=== PATIENT | female | born 1940 | race Caucasian/White ===

== ENCOUNTER → 2016-12-24 | Outpatient (CLI) | payer OTHER | LOC: BMCIMAGING 10:10 | PROVIDERS: ATTEND Internal Medicine Hematology & Oncology | DX: Z13.820 Encounter for screening for osteoporosis (principal); M81.0 Age-related osteoporosis without current pathological fracture; Z87.81 Personal history of (healed) traumatic fracture ==

== ENCOUNTER 2017-03-06 07:35 | Inpatient (IN) | payer OTHER ==
--- NOTE | 2017-03-06 07:56 | EDPHY ---
H & P Time Seen by Provider: 03/06/17 07:53 HPI/ROS: CHIEF COMPLAINT: Right hip pain HISTORY OF PRESENT ILLNESS: The patient is a 76 y/o female who complains of right hip pain secondary to a mechanical fall yesterday. Yesterday she tried to step off a sidewalk curb when she tripped and fell backwards onto her right buttock. She needed assistance to stand up by herself after the fall, but she was able to walk. Throughout the day the pain began to increase from an ache to a piercing pain and she eventually was unable to bear weight or walk. The pain is now severe and constant. She also notes the pain radiates to her right thigh with associated spasms. Denies other trauma, fever, chest pain, paresthesias or other pertinent symptoms. Last oral intake at 0630 (water only). REVIEW OF SYSTEMS: Aside from elements discussed in the HPI, a comprehensive 10-point review of systems was reviewed and is negative. Past Medical/Surgical History: PMH: Rheumatoid arthritis, osteoporosis, pulmonary hypertension PSH: Bilateral knee replacements Social History: at bedside, lives in [place], retired. Smoking Status: Never smoked Physical Exam: General Appearance: Alert, pleasant Head: Atraumatic Eyes: No conjunctival erythema, PERRLA, EOMI ENT, Mouth: no oral trauma, no bony tenderness Neck: Non-tender, full range of motion without pain Respiratory: No chest wall tenderness, lungs clear bilaterally Cardiovascular: Regular rate and rhythm Abdomen: Abdomen is soft and non tender Skin: No lacerations, no abrasions Back: No midline T/L/S tenderness Extremities: Right hip tenderness and pain with range of motion. Pelvis is stable; no tenderness over the pelvis or pubic symphysis, no extremity tenderness or deformity. Neurological: A&O, nonfocal exam Psychiatric: Mood and affect normal Constitutional: Initial Vital Signs Temperature (C) 36.7 C 03/06/17 07:38 Heart Rate 68 03/06/17 07:38 Respiratory Rate 18 03/06/17 07:38 Blood Pressure 163/91 H 03/06/17 07:38 O2 Sat (%) 97 03/06/17 07:38 O2 Delivery Mode Nasal Cannula O2 (L/minute) 2 Allergies/Adverse Reactions: shellfish derived Allergy (Intermediate, Verified 03/06/17 07:37) FACIAL SWELLING SEASONAL Allergy (Mild, Uncoded 12/07/13 14:19) RUNNY NOSE Home Medications: Medication Instructions Recorded Diltiazem Cd [Cardizem ER 120 MG 120 mg PO DAILY 03/23/12 (RX)] Lisinopril [Zestril 20 mg (RX)] 20 mg PO DAILY 03/23/12 Cholecalciferol Vit D3 [Vitamin D3 2,000 units PO DAILY 03/13/13 2000 units (OTC)] C/E/Zn/Cu/OM3/DHA/EPA/LUT/ZEAX 1 each PO BID 03/06/17 [Preservision Areds 2 Softgel] DULoxetine [Cymbalta 60 MG (*)] 60 mg PO DAILY 03/06/17 Furosemide [Lasix 20 MG (*)] 20 mg PO Q3D PRN 03/06/17 Ibuprofen [Motrin (*)] 400 mg PO Q4-6PRN PRN 03/06/17 Medical Decision Making - Diagnostics Imaging Results: Imaging Impressions Hip X-Ray 03/06/17 07:52 Impression: Nondisplaced intertrochanteric fracture of the right hip. See report of CT head performed on the same day for further details. Dr. Fierro discussed these findings by telephone with JEN ARTEAGA at 2016 9:03. Chest X-Ray 03/06/17 08:02 Impression: 1. Cardiomegaly. 2. Large hiatal hernia. 3. No definite pneumonia or pulmonary edema. 4. Consider chest two views when the patient's medical condition permits. Extremity CT 03/06/17 08:31 Impression: 1. Nondisplaced intertrochanteric fracture of the right femur. 2. Fusion of the right sacroiliac joint. 3. Moderate to severe femoroacetabular joint osteoarthrosis, left greater than right. 4. Right adnexal cyst measuring 4.1 cm. Recommend annual ultrasound follow-up. Dr. Fierro discussed these findings by telephone with JEN ARTEAGA at 2016 9:03. Imaging: Discussed imaging studies w/ director call Radiologist, I viewed and interpreted images myself ED Course/Re-evaluation: The patient is a 76 y/o female who presents with right hip tenderness secondary to a mechanical fall yesterday. On exam she has right hip pain with range of motion. 0835: Patient's right hip x-ray is negative for osseous injury. Right hip CT ordered for further imaging. 0903: Spoke with radiologist about the patient's right hip CT; he reports the patient has a right intertrochanteric hip fracture. 0905: Reassessed patient and discussed right hip x-ray findings and plan for admission. She reports she last ate last night and had a small glass of water this morning. She declines pain medication. There is no evidence of other injuries. 0908: Consulted with Dr. Jimenez [facility], spoke with Ruth ibarra orthopedic PA, about the patient's hip fracture. 0913: Consulted with hospitalist service, Dr. Tena accepts admission of this patient. Differential Diagnosis: Differential diagnosis includes though it is not limited to open fracture, intracranial hemorrhage, pneumothorax, hemothorax, intra-abdominal hemorrhage. - Data Points Laboratory Results: Laboratory Results 03/06/17 08:40 03/06/17 08:40 03/06/17 03/06/17 08:40 08:40 WBC 7.88 10^3/uL 10^3/uL (3.80-9.50) RBC 4.55 10^6/uL 10^6/uL (4.18-5.33) Hgb 13.5 g/dL g/dL (12.6-16.3) Hct 42.7 % % (38.0-47.0) MCV 93.8 fL fL (81.5-99.8) MCH 29.7 pg pg (27.9-34.1) MCHC 31.6 g/dL L g/dL (32.4-36.7) RDW 14.7 % % (11.5-15.2) Plt Count 145 10^3/uL L 10^3/uL (150-400) MPV 10.1 fL fL (8.7-11.7) Neut % (Auto) 71.3 % % (39.3-74.2) Lymph % (Auto) 13.8 % L % (15.0-45.0) Toombs % (Auto) 10.3 % % (4.5-13.0) Eos % (Auto) 3.6 % % (0.6-7.6) Baso % (Auto) 0.5 % % (0.3-1.7) Nucleat RBC Rel Count 0.0 % % (0.0-0.2) Absolute Neuts (auto) 5.62 10^3/uL 10^3/uL (1.70-6.50) Absolute Lymphs (auto) 1.09 10^3/uL 10^3/uL (1.00-3.00) Absolute Monos (auto) 0.81 10^3/uL H 10^3/uL (0.30-0.80) Absolute Eos (auto) 0.28 10^3/uL 10^3/uL (0.03-0.40) Absolute Basos (auto) 0.04 10^3/uL 10^3/uL (0.02-0.10) Absolute Nucleated RBC 0.00 10^3/uL 10^3/uL (0-0.01) Immature Gran % 0.5 % % (0.0-1.1) Immature Gran # 0.04 10^3/uL 10^3/uL (0.00-0.10) Sodium 141 mEq/L mEq/L (134-144) Potassium 4.6 mEq/L mEq/L (3.5-5.2) Chloride 104 mEq/L mEq/L (97-110) Carbon Dioxide 27 mEq/l mEq/l (22-31) Anion Gap 10 mEq/L mEq/L (8-16) BUN 25 mg/dL H mg/dL (7-23) Creatinine 0.6 mg/dL mg/dL (0.6-1.0) Estimated GFR > 60 Glucose 94 mg/dL mg/dL (70-100) Calcium 9.0 mg/dL mg/dL (8.5-10.4) Medications Given: Hydrocodone Bitart/Acetaminophen (Straughn 5/325) 1 - 2 tab PO Q4HRS PRN PRN Reason: Pain, Moderate Able to Take PO Stop: 03/16/17 10:19 Last Admin: 03/06/17 11:49 Dose: 1 tab Cyclobenzaprine HCl (Flexeril) 5 mg PO TID PRN PRN Reason: Spasms Stop: 09/02/17 13:14 Last Admin: 03/06/17 13:42 Dose: 5 mg Hydromorphone HCl (Dilaudid) 0.2 - 0.4 mg IVP Q4HRS PRN PRN Reason: Pain, Severe Unable to Take PO Stop: 03/16/17 10:19 Last Admin: 03/06/17 11:48 Dose: 0.2 mg Departure - Departure Disposition: [facility] Inpatient Acute Clinical Impression: Fracture of right hip Qualifiers: Encounter type: initial encounter Fracture type: closed Qualified Code(s): S72.001A - Fracture of unspecified part of neck of right femur, initial encounter for closed fracture Intertrochanteric fracture of right hip Qualifiers: Encounter type: initial encounter Fracture type: closed Fracture alignment: nondisplaced Qualified Code(s): S72.144A - Nondisplaced intertrochanteric fracture of right femur, initial encounter for closed fracture Condition: Fair Report Scribed for: Jen Arteaga Report Scribed by: Rubina Benavides Date of Report: 03/06/17 Time of Report: 07:55 Physician Review and Approval Statement: 03/06/17 07:55 Portions of this note were transcribed by a electromedical service engineer. I personally performed a history, physical exam, medical decision making, and confirmed accuracy of information the transcribed note.
[2017-03-06 08:46] LABS: % IMMATURE GRANULYOCYTES 0.5 % (0.0-1.1); ABSOLUTE IMMATURE GRANULOCYTES 0.04 10^3/uL (0.00-0.10); ADD DIFF? NO; ADD MORPH? NO; ADD SCAN? NO; ATYPICAL LYMPHOCYTE FLAG 0 (0-99); FRAGMENT RBC FLAG 0 (0-99); HEMATOCRIT 42.7 % (38.0-47.0); HEMOGLOBIN 13.5 g/dL (12.6-16.3); LEFT SHIFT FLG 0 (0-99); LIPEMIA HEMOLYSIS FLAG 80 (0-99); MEAN CELL HEMOGLOBIN 29.7 pg (27.9-34.1); MEAN CELL HEMOGLOBIN CONCENTR. 31.6 g/dL (32.4-36.7); MEAN CELL VOLUME 93.8 fL (81.5-99.8); MEAN PLATELET VOLUME 10.1 fL (8.7-11.7); PLATELET CLUMPS FLAG 0 (0-99); PLATELET COUNT 145 10^3/uL (150-400); RED BLOOD CELL COUNT 4.55 10^6/uL (4.18-5.33); RED CELL DISTRIBUTION WIDTH 14.7 % (11.5-15.2)
[2017-03-06 09:08] LABS: ANION GAP 10 mEq/L (8-16); CARBON DIOXIDE 27 mEq/l (22-31); CHLORIDE 104 mEq/L (97-110); CREATININE 0.6 mg/dL (0.6-1.0); GLOMERULAR FILTRATION RATE > 60; GLUCOSE 94 mg/dL (70-100); POTASSIUM 4.6 mEq/L (3.5-5.2); SODIUM 141 mEq/L (134-144)
--- NOTE | 2017-03-06 10:15 | ASMTCASEMG ---
Living Arrangements What is your living Answers: With Spouse arrangement? Who do you live with? Type Of Residence What kind of residence do Answers: House you live in? Stairs in Home Answers: Yes Notes: Please see note Environment Services Used Prior to Admission Home Services Used Prior Answers: Homemaking to Admission Other Services Used Prior to Admission Notes: Physical Therapy 2x per week for compressed T5 Home/Community Service Agency Name(s) Notes: Helen Goode [employer] [facility] [phone] Please see note Case Management Evaluation Functional: Able to Answers: Yes return Home with Prior Level of Function/Care Discharge Plan Comments Coordination Status Comments Notes: The pt is a 76 year old female who arrived by private vehicle to [facility] with her (Tavares). Pt reported that she fell on 03/05 while running errands. She was able to continue with her errands but began to experience a great deal of pain later in the day. Pt reported that she and her have been for 57 years and they live in a ranch style home in [place], about 5 minutes from the hospital. There are 13 stairs in the home to access the laundry room; pt indicated that she does not use them and her takes care of the laundry. Pt reported that they have a manager process every other week. Pt has 3 children who live in the area and they are aware that she is in [facility]. Her oldest daughter is confined to a wheelchair due to MS and the other two have cold/flu symptoms. Pt stated that she is very close to her children and indicated she would rather not be exposed to additional illness at this anaid. Pt reported that she attends outpatient physical therapy 2x per week with Helen Henesteban for a compressed T5. 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 Pt indicated pt may consider treatment in home. MILEY plans NAHOMI HERNANDEZ to follow. Date Signed: 03/06/2017 10:15 AM Electronically Signed By:Cyndy Wong LCSW
[2017-03-06] MEDS ORDERED: ONDANSETRON DISINTEGRATING 4 MG TAB PO PRN ×2 (10:20→19:33)
[2017-03-06] MEDS ORDERED: ONDANSETRON 4 MG/2 ML VIAL IVP PRN ×3 (10:20→19:33)
[2017-03-06] MEDS ORDERED: ACETAMINOPHEN 325 MG TAB PO PRN (10:20)
[2017-03-06] MEDS ORDERED: FUROSEMIDE 20 MG TAB PO PRN (10:23)
[2017-03-06] MEDS ORDERED: D5W 1/2 NS 1,000 ML IV SCH (10:30)
[2017-03-06] MEDS: HYDROmorphONE/DILAUDID 1 MG/ML INJ IVP PRN ×2 (11:48→15:43)
[2017-03-06] MEDS: HYDROCODONE/APAP 5/325 TAB PO PRN ×2 (11:49→15:43)
[2017-03-06] MEDS: CYCLOBENZAPRINE 10 MG TAB PO PRN (13:42)
--- NOTE | 2017-03-06 15:49 | CPEKG ---
Heart Rate: 67 RR Interval: 896 P-R Interval: 156 QRSD Interval: 138 QT Interval: 424 QTC Interval: 448 P Nilwood: 63 QRS Nilwood: -59 T Wave Nilwood: 51 EKG Severity - ABNORMAL ECG - EKG Impression: SINUS RHYTHM EKG Impression: RBBB AND LAFB EKG Impression: PROBABLE LEFT VENTRICULAR HYPERTROPHY EKG Impression: LATERAL INFARCT, OLD Electronically Signed By: Stella Kevin 07-Mar-2017 06:47:53
--- NOTE | 2017-03-06 17:23 | PDANEPAE ---
ANE History of Present Illness right hip fx p/f TFN ANE Past Medical History - Cardiovascular History Hx Hypertension: Yes Hx Arrhythmias: No Hx Chest Pain: No Hx Coronary Artery / Peripheral Vascular Disease: Yes Hx CHF / Valvular Disease: No Cardiovascular History Comment: MURMUR. LEAKY VALVES. STABLE CARDIOMEGALY - Pulmonary History Hx COPD: No Hx Asthma/Reactive Airway Disease: No Hx Recent Upper Respiratory Infection: No Hx Oxygen in Use at Home: Yes O2 in Use at Home (L/minute): 2 to 3 L Hx Sleep Apnea: No Sleep Apnea Screening Result - Last Documented: Positive Pulmonary History Comment: SOB W STAIRS. PULM HTN - Neurologic History Hx Cerebrovascular Accident: No Hx Seizures: No Hx Dementia: No - Endocrine History Hx Diabetes: No - Renal History Hx Renal Disorders: Yes Renal History Comment: INCONTINENCE - Liver History Hx Hepatic Disorders: No - Neurological & Psychiatric Hx Hx Neurological and Psychiatric Disorders: Yes Neurological / Psychiatric History Comment: ANXIETY, DEPRESSION - Cancer History Hx Cancer: No - Congenital Disorder History Hx Congenital Disorders: No - GI History Hx Gastrointestinal Disorders: Yes Gastrointestinal History Comment: LG HIATAL HERNIA. POLYPS. OCC DIARRHEA - Other Health History Other Health History: FRONT UPPER TEETH DAMAGED, BROKEN FROM FALL IN FEB. DENTAL IMPLANTS IN PLACE, WEARS RETAINER. OSTEOPENIA. ANEMIA, IRON DEF.- OCC INFUSIONS - Chronic Pain History Chronic Pain: Yes (L ARM) - Surgical History Prior Surgeries: EDUARD CATARACTS. MARCY. EDUARD TKA. KYPHOPLASTY. HEART CATH. TONSILS. NASAL POLYPS REM ANE Review of Systems Review of Systems: - Exercise capacity Exercise capacity: limited by disability ANE Patient History - Allergies Allergies/Adverse Reactions: shellfish derived Allergy (Intermediate, Verified 03/06/17 07:37) FACIAL SWELLING SEASONAL Allergy (Mild, Uncoded 12/07/13 14:19) RUNNY NOSE - Home Medications Home medications: home medication list seen and reviewed Home Medications: Diltiazem Cd [Cardizem ER 120 MG (RX)] 120 mg PO DAILY 03/23/12 [Last Taken ] Lisinopril [Zestril 20 mg (RX)] 20 mg PO DAILY 03/23/12 [Last Taken 03/06/17] Cholecalciferol Vit D3 [Vitamin D3 2000 units (OTC)] 2,000 units PO DAILY [Last Taken 03/05/17] C/E/Zn/Cu/OM3/DHA/EPA/LUT/ZEAX [Preservision Areds 2 Softgel] 1 each PO BID [Last Taken 03/05/17 21:00] DULoxetine [Cymbalta 60 MG (*)] 60 mg PO DAILY 03/06/17 [Last Taken 03/06/17] Furosemide [Lasix 20 MG (*)] 20 mg PO Q3D PRN 03/06/17 [Last Taken 2 Days Ago ~ 03/04/17] Ibuprofen [Motrin (*)] 400 mg PO Q4-6PRN PRN 03/06/17 [Last Taken 03/06/17] - NPO status NPO Since - Liquids (Date): 03/05/17 NPO Since - Liquids (Time): 16:30 NPO Since - Solids (Date): 03/05/17 NPO Since - Solids (Time): 16:30 - Anes Hx Anes Hx: no prior problems - Smoking Hx Smoking Status: Never smoked - Family Anes Hx Family Hx Anesthesia Complications: NONE ANE Labs/Vital Signs - Labs Result Diagrams: 03/06/17 08:40 03/06/17 08:40 - Vital Signs Blood Pressure: 128/73 Heart Rate: 64 Respiratory Rate: 16 O2 Sat (%): 94 Height: 157.48 cm Weight: 90.718 kg ANE Physical Exam - Airway Neck exam: FROM Mallampati Score: Class 2 Mouth exam: normal dental/mouth exam - Pulmonary Pulmonary: no respiratory distress - Cardiovascular Cardiovascular: regular rate and rhythym - ASA Status ASA Status: III ANE Anesthesia Plan Anesthesia Plan: general endotracheal anesthesia Urgent/Emergent Case: Roseanna bneson completed preop but documented later for safe timely pt care
[2017-03-06] MEDS ORDERED: ceFAZolin 2 GM/DEXTROSE 100 ML IV ONE (17:27)
[2017-03-06] MEDS ORDERED: PROPOFOL 200 MG/20 ML VIAL ONE (17:34)
[2017-03-06] MEDS ORDERED: fentaNYL 100 MCG/2 ML INJ ONE (17:34)
--- NOTE | 2017-03-06 17:36 | SOAPPROG ---
SOAP Progress Note Assessment/Plan: Assessment:Sonja is a pleasant 76 year old female who presents to the ER after falling last night. She was originally able to weight bear, however, had increasing pain. She presented to the ER unable to weight bear and was found to have a nondisplaced right intertrochanteric fracture. PE: Unable to bear weight Pain with ROM right hip NV intact RLE Plan: 1. Risks, benefits, and alternatives of operative vs non-operative management were discussed with patient. Patient wishes to proceed with surgical intervention 2. Informed consent was signed and patient will be taken to the OR at its earliest availability 03/06/17 17:33 Objective: Vital Signs Temp Pulse Resp BP Pulse Ox 36.8 C 64 16 128/73 H 94 03/06/17 15:17 03/06/17 17:22 03/06/17 17:22 03/06/17 17:22 03/06/17 17:22 ICD10 Worksheet Patient Problems: Problems Problem Status Onset Fracture of right hip Acute Intertrochanteric fracture of right hip Acute
[2017-03-06] MEDS ORDERED: SUGAMMADEX SODIUM 200 MG/2 ML VIAL IVP ONE (17:45)
[2017-03-06] MEDS ORDERED: ONDANSETRON 4 MG/2 ML VIAL ONE (17:45)
[2017-03-06] MEDS ORDERED: ROCURONIUM 100 MG/10 ML VIAL ONE (17:45)
[2017-03-06] MEDS ORDERED: DEXAMETHASONE 4 MG/ML VIAL ONE (17:45)
--- NOTE | 2017-03-06 17:46 | SOAPPROG ---
SOAP Progress Note Assessment/Plan: Assessment:Sonja is a pleasant 76 year old female now POD#0 from TFN right intertrochanteric femur fracture. PE: Dressing CDI NV intact RLE Plan: 1. Keep dressing clean and dry. Reinforce dressing if needed 2. Pt may weight bear as tolerated with an assistive device 3. PT/OT 4. Patient may be discharged once cleared from hospitalist care. Prescriptions for pain medication are in chart. Follow up with Dr. Salinas in two weeks for repeat evaluation, repeat radiographs, and staple removal. 03/06/17 17:33 03/06/17 17:43 Objective: Vital Signs Temp Pulse Resp BP Pulse Ox 36.8 C 64 16 128/73 H 94 03/06/17 15:17 03/06/17 17:22 03/06/17 17:22 03/06/17 17:22 03/06/17 17:22 ICD10 Worksheet Patient Problems: Problems Problem Status Onset Fracture of right hip Acute Intertrochanteric fracture of right hip Acute
[2017-03-06] MEDS ORDERED: LR 1,000 ML IV ONE (17:55)
[2017-03-06] MEDS ORDERED: HYDROmorphONE/DILAUDID 2 MG/ML INJ ONE (18:57)
[2017-03-06] MEDS ORDERED: HYDROmorphONE/DILAUDID 1 MG/ML INJ IVP PRN (19:09)
[2017-03-06] MEDS ORDERED: OXYCODONE/APAP 5/325 TAB PO PRN ×2 (19:09→19:33)
[2017-03-06] MEDS ORDERED: fentaNYL 100 MCG/2 ML INJ IVP PRN (19:09)
[2017-03-06] MEDS ORDERED: PROMETHAZINE HCL 25 MG/ML INJ IVP PRN (19:09)
[2017-03-06] MEDS ORDERED: LR 500 ML IV PRN (19:09)
[2017-03-06] MEDS ORDERED: NALOXONE HCL 0.4 MG/ML INJ IVP PRN (19:09)
[2017-03-06] MEDS ORDERED: ALBUTEROL 3 ML DEYVIAL IH PRN (19:09)
--- NOTE | 2017-03-06 19:33 | POSTOPPROG ---
Post Op Note Date of Operation: 03/06/17 Surgeon: Jignesh Salinas Architectural Technologist: Ruth Das PA-C Anesthesia: GET(General Endotracheal) Pre-op Diagnosis: right intertrochanteric femur fracture Post-op Diagnosis: right intertrochanteric femur fracture Procedure: right femur TFN Findings: right intertrochanteric femur fracture Inf/Abcess present in the surg proc area at time of surgery?: No Depth: Deep Incisional (Fascial) EBL: Minimal
--- NOTE | 2017-03-06 19:40 | POSTANESTH ---
Post Anesthetic Evaluation Cardiovascular Status: Normal, Stable Respiratory Status: Normal, Stable Level of Consciousness/Mental Status: Mildly Sleepy, Arousable Pain Control: Adequate, Prn Tx Ordered Nausea/Vomiting Control: Adequate, Prn Tx Ordered Complications Possibly Related to Anesthesia: None Noted
--- NOTE | 2017-03-06 23:12 | GCON ---
[f rep st] CONSULTATION Patient Name: DEVI BARAJAS N-Number: [id number] Date of : 1940 Patient Status: Inpatient Attending Doctor: Dr. Sera Tena Consulting Doctor: Jignesh Salinas MD Date of service: 03/06/17 CPT codes CPT code 38162 ER visit requiring admission or initial inpatient visit, level three Modifier 57 decision for surgery CHIEF COMPLAINT: Right hip pain HISTORY OF PRESENT ILLNESS: This is a very pleasant 76 year old female with a significant history for a fall onto her right hip on 03/05/17. Following the fall, she was unable to bear weight on her right lower extremity. As such, she was brought to the [facility] ED and was found to have an incomplete, non-displaced right intertrochanteric femur fracture. PROBLEM LIST: Right intertrochanteric femur fracture PAST MEDICAL HISTORY: Pulmonary hypertension, chronic O2 use, HTN, osteopenia SURGERIES: Bilateral TKA, Cholecystectomy, bilateral humeral IM rods, cardiac catheterization SOCIAL HISTORY: Non-contributory FAMILY HISTORY: Non-contributory CURRENT MEDICATIONS: Diltiazem, Lisinopril, Cholecalciferol, Duloxetine, Lasix, Ibuprofen, Preservision Areds 2 softgel ALLERGIES: NKDA REVIEW OF SYSTEMS Constitutional: No unexpected weight loss, weight gain, fevers, chills, or fatigue. Eyes: No blurred or double vision, no eye pain, redness or swelling. ENT: No headaches, difficulty swallowing, nose bleeds, tinnitus, or earaches. Cardiovascular: No chest pain, palpitations, fainting or murmurs. Respiratory: No shortness of breath, wheezing, cough, of difficulty breathing. GI: No reflux, no nausea or vomiting, no constipation, diarrhea, or bloody stools. Genitourinary: No urinary frequency or urgency, no pain with urination. Skin: No skin changes, rashes, itching, or redness. Neurologic: No unsteadiness of gait, no dizziness, tremors, or seizures. Psychiatric: No nervousness, anxiety, depression, or hallucinations. Hematologic: No increased bleeding or easy bruising. Endocrine: No excessive thirst or urination and no heat or cold intolerances. Allergic: No reactions to food or environment. Musculoskeletal: See history of present illness. PHYSICAL EXAM VITAL SIGNS: General: No apparent distress. Orientation: Alert and oriented times three Mood and affect: Calm, appropriate. Gait and station: Unable to assess Skin: Warm, dry. Lymph: Non tender neck, axillary and inguinal nodes. Chest: Equal expansion, no pain with deep breaths, speaks in coherent sentences. Cardiovascular: Regular pulse. Abdomen: Soft, non-tender, no masses, no palpable hernias. Bilateral hip examination Inspection/palpation: Right: TTP overlying right hip and groin. Pain with gentle ROM Left: Soft, non-tender. Range of motion Flexion: JOSÉ MIGUEL / 100 / 100 Extension: JOSÉ MIGUEL / 30 / 30 Abduction: JOSÉ MIGUEL / 40 / 40 Adduction: JOSÉ MIGUEL / 20 / 20 Internal rotation: JOSÉ MIGUEL / 40 / 40 External rotation: JOSÉ MIGUEL / 50 / 50 Strength (R / L / Normal) Muscle(s) Quadriceps (L3-L4): 3 / 5 / 5 Hamstrings (L4-L5): 3 / 5 / 5 Tibialis anterior (L4): 3 / 5 / 5 EHL (L5): 3 / 5 / 5 FHL (S1): / 5 / 5 Gastroc-soleus (S1): 3 / 5 / 5 Sensory (R / L / Normal) Dermatomes L1 (groin): + / + / + L2 (medial upper thigh): + / + / + L3 (anterior thigh): + / + / + L4 (medial ankle): + / + / + L5 (first dorsal web space): + / + / + S1 (lateral border of foot): + / + / + Peripheral nerves Superficial peroneal: + / + / + Deep peroneal: + / + / + Sural: + / + / + Tibial: + / + / + Saphenous: + / + / + Vascular exam (R / L / Normal) Dorsalis pedis pulse: 2+ / 2+ / 2+ Tibialis posterior pulse: 2+ / 2+ / 2+ Medical decision making Data Imaging study: right hip radiographs, two views Action: interpreted Interpretation / pertinent findings: possible nondisplaced intertrochanteric femur fracture Imaging study: right hip CT scan Action: interpreted Interpretation / pertinent findings: right intertrochanteric femur fracture, incomplete, non-displaced Diagnoses New diagnosis: right intertrochanteric femur fracture Work-up planned: yes: see assessment and plan Assessment and plan This is a pleasant 76 year old female with a right intertrochanteric femur fracture (incomplete and non-displaced) after injury on 03/05/17 -- currently unable to bear weight on her RLE with the use of an assistive device -As such I have discussed with the patient the risks, benefits, alternatives, and complications associated with both non-operative (specifically, observation ) and operative (specifically, right hip open reduction and internal fixation) forms of treatment -The patient fully understands the risks, benefits, alternatives, and complications of both forms of treatment and the patient wishes to proceed with operative intervention as outlined above -She has signed informed consent form for surgery and surgery will be performed as soon as the OR is available Time I have spent 80 minutes of [id number] time with the patient during this visit. Over fifty percent of this time was spent counseling the patient on the risks, benefits, alternatives, and complications of both non-operative and operative forms of treatment as outlined above. /[id number]/MODL MTDD
[2017-03-06] MEDS: PRESERVISION AREDS2 FORMULA EYE VIT 1 EACH PO SCH (23:38)
--- NOTE | 2017-03-06 23:52 | GHP ---
[f rep st] HISTORY AND PHYSICAL DATE OF ADMISSION: 03/06/2017 CHIEF COMPLAINT: Right hip pain. HISTORY OF PRESENT ILLNESS: This patient is a very pleasant 76-year-old female who fell yesterday while running errands. She landed on her right hip and buttock. She was able to walk immediately after injury and thought that she had just bruised herself. However, throughout the course of the night, the pain became much more intense, and she and her decided to come to the emergency department for evaluation this morning. Initial hip x-ray showed a nondisplaced intertrochanteric fracture of the right hip. She is admitted to the hospital for orthopedic stabilization. She denies any chest pain, shortness of breath, dizziness, lightheadedness prior to the fall. She states that it was just a misstep on a curb. She denies any previous history of stroke, heart attack, or diabetes. She does have pulmonary hypertension that has been well controlled with oxygen intermittently at night and with exercise. She denies any recent illness, fever, headache. She denies any nausea, vomiting , or diarrhea. Other than pain and spasm in her right hip and leg pain, she denies any other symptoms currently. PAST MEDICAL HISTORY: Pulmonary hypertension, chronic O2 use, history of bilateral knee replacements, history of cholecystectomy, history of bilateral broken arms with humeral intramedullary rods bilaterally, hypertension, osteopenia, history of cardiac catheterization in June 2012, showing secondary pulmonary hypertension with LV end-diastolic pressures elevated, but no significant coronary artery disease. SOCIAL HISTORY: She lives independently in [place] with her , Tavares. She has 3 grown adult children who live locally also. No tobacco use ever. Drinks 1-2 glasses of wine on the weekends only. ALLERGIES: No known drug allergies, but she is allergic to shellfish. REVIEW OF SYSTEMS: 10-point review of systems was done and was negative, except as above. OBJECTIVE: VITAL SIGNS: Blood pressure 120/73, heart rate is 67, respiratory rate is 16. She is 94% on 2.5 L nasal cannula. Temperature is 98.4. GENERAL: She is a very pleasant elderly female in no apparent distress. HEENT: Normocephalic, atraumatic. Extraocular movements are intact. Oropharynx is moist with no obvious lesions. NECK: Supple. No lymphadenopathy, JVD, or thyromegaly appreciated. CARDIOVASCULAR: Regular rate and rhythm without murmur. LUNGS: Decreased breath sounds throughout, but no rhonchi, wheezes, or crackles appreciated. ABDOMEN: Soft. Normoactive bowel sounds. No hepatosplenomegaly or masses appreciated. SKIN: No obvious rash or injury. NEUROLOGIC: Cranial nerves 2-12 are grossly intact. She moves all extremities , except less movement in the right lower extremity. Light touch is grossly intact throughout. PSYCHIATRIC: Speech is fluent. Mood and affect are pleasant and talkative. LABORATORY DATA: White blood cell count 7.88, hemoglobin and hematocrit 13.5 and 42.7, platelet count of 145, normal differential. Sodium is 141, potassium 4.6, chloride 104, CO2 27, BUN 25, creatinine 0.6, glucose 94, calcium 9.02. Extremity CT showed confirmed the nondisplaced intertrochanteric fracture of the right femur, previous fusion of the right sacroiliac joint, moderate to severe femoroacetabular joint osteoarthrosis with left greater than right, and a right adnexal cyst approximately 4.1 cm (recommendation was to follow with an ultrasound annually.) Chest x-ray showed cardiomegaly, large hiatal hernia. No pneumonia, pulmonary edema, or acute changes noted. All radiology studies were personally reviewed and agree with interpretations. ASSESSMENT/PLAN: 1. Right intertrochanteric nondisplaced fracture. Dr. Salinas has been consulted by the emergency department and is planning to take her to the operating room later today. Pain medications and anticoagulation will be reviewed after surgery. No specific pre-operative testing recommended. 2. Pulmonary hypertension. Electrocardiogram has been ordered but is pending at time of admission. Oxygen will be continued, and pulmonary status will need to be watched closely after anesthesia. 3. Hypertension. Continue with chronic home medications. 4. Osteoporosis. Continue with calcium/vitamin D. 5. Deep venous thrombosis prophylaxis. ALEXY hose and sequential compression devices currently but will discuss with Dr. Salinas pharmacological prophylaxis postsurgically. Full code requested by the patient. Primary care physician is Dr. Polk. Disposition. Anticipate greater than 2 midnights pending surgical repair and surgical recovery. /[id number]/MODL MTDD
[2017-03-07 05:14] LABS: % IMMATURE GRANULYOCYTES 0.3 % (0.0-1.1); ABSOLUTE IMMATURE GRANULOCYTES 0.03 10^3/uL (0.00-0.10); ADD DIFF? NO; ADD MORPH? NO; ADD SCAN? NO; ATYPICAL LYMPHOCYTE FLAG 0 (0-99); FRAGMENT RBC FLAG 0 (0-99); HEMATOCRIT 39.2 % (38.0-47.0); HEMOGLOBIN 12.1 g/dL (12.6-16.3); LEFT SHIFT FLG 0 (0-99); LIPEMIA HEMOLYSIS FLAG 80 (0-99); MEAN CELL HEMOGLOBIN 29.5 pg (27.9-34.1); MEAN CELL HEMOGLOBIN CONCENTR. 30.9 g/dL (32.4-36.7); MEAN CELL VOLUME 95.6 fL (81.5-99.8); MEAN PLATELET VOLUME 10.8 fL (8.7-11.7); PLATELET CLUMPS FLAG 0 (0-99); PLATELET COUNT 151 10^3/uL (150-400); RED CELL DISTRIBUTION WIDTH 14.7 % (11.5-15.2)
[2017-03-07 05:35] LABS: ANION GAP 6 mEq/L (8-16); CALCIUM 8.2 mg/dL (8.5-10.4); CARBON DIOXIDE 29 mEq/l (22-31); CHLORIDE 103 mEq/L (97-110); CREATININE 0.6 mg/dL (0.6-1.0); GLOMERULAR FILTRATION RATE > 60; GLUCOSE 135 mg/dL (70-100); SODIUM 138 mEq/L (134-144)
--- NOTE | 2017-03-07 05:54 | GOP ---
[f rep st] OPERATIVE REPORT PATIENT: DEVI BARAJAS DATE OF SERVICE: 03/06/17 PATIENT DATE OF : 1940 SURGEON: Jignesh Salinas M.D. DATA ABSTRACTOR: Ruth Das PA-C Mrs. Guallpa assistance was medically necessary for patient positioning and the retraction of vital structures. ANESTHESIA: General PRE-OPERATIVE DIAGNOSES: Right intertrochanteric femur fracture (ICD-10 code S72.143A Intertrochanteric femur fracture) POST-OPERATIVE DIAGNOSES: Right intertrochanteric femur fracture (ICD-10 code S72.143A Intertrochanteric femur fracture) OPERATIVE PROCEDURES: CPT code 33702 Treatment of an intertrochanteric femur fracture with an intramedullary implant EBL: 2cc COMPLICATIONS: None IMPLANTS: Synthes short trochanteric fixation nail with a 90 mm helical blade and a 38 mm distal interlocking bolt BRIEF CLINICAL NOTE: This is a very pleasant 76 year old female with a significant history for a right intertrochanteric femur fracture. As such, I have discussed the risks, benefits, alternatives, and complications associated with both non-operative (specifically, observation) and operative (specifically , right proximal femur reduction and internal fixation) forms of treatment. The patient fully understands the risks, benefits, alternatives, and complications associated with both forms of treatment and wishes to proceed with operative intervention as outlined above. The patient has signed the informed consent form for surgery. OPERATIVE NOTE: On the day of surgery, all of the patients questions were answered. The patient was then transferred from the pre-operative area into the operating room and a formal, Time-Out procedure was performed. The patient was identified by name, medical record number, social security number, and date of . In addition, the patients right lower extremity was identified as the correct portion of the patients body for surgery with the patients right hip being identified as the correct portion of that extremity for surgery. The anesthesia team administered pre-operative antibiotics for prophylaxis. The patient was then moved onto the fracture table and the right lower extremity was placed into traction. The extremity was then prepped and draped in the normal sterile fashion. A sterile marking pen was then utilized to crispin out the tip of the greater trochanter and 2-3 cm incision several centimeters proximal to the tip of the greater trochanter. A number 15 blade was then used to incise the skin and meticulous hemostasis was obtained in the subcutaneous plane. The abductor fascia was then split longitudinally to provide access to the tip of the greater trochanter. The starting guidewire was then advanced through the wound onto the tip of the greater trochanter. The guidewire was then advanced into the proximal femur. Appropriate guidewire positioning was then confirmed on both PA and lateral C-arm images. Next, the starting reamer was then advanced over the guidewire to create an entry point into the proximal femur. Following this, the guidewire and the starting reamer were then removed and a ball-tipped guidewire was advanced into the proximal femoral canal. The guidewires position was confirmed on both PA and lateral C-arm images. Next, the proximal femur was reamed over the guidewire starting with a 9 mm reamer and increasing in 0.5mm increments up to a 13.5 mm reamer. The last reamer provided for an excellent fit in the proximal femoral canal. As such, a 12 mm diameter short TFN was then opened and attached to the impaction device. The TFN was then advanced over the ball-tipped guidewire under fluoroscopic control. Next, the outrigger aiming arm was attached to the impaction device and a separate incision was made to allow for insertion of the helical blade. The aiming guide for the helical blade was then advanced through this separate incision and brought into direct contact with the lateral femoral cortex. The guidewire was then advanced through the aiming arm into the proximal femur extending into the lower portion of the femoral neck and head. Appropriate guidewire positioning was then confirmed on both PA and lateral C-arm fluoroscopy. Next, the large drill was utilized to open the lateral femoral cortex. The guidewire was then measured at a length of 90 mm and the stepped reamer was then set for this length. The guidewire was then over drilled with the stepped reamer. Following this, a 90 mm helical blade was then selected and opened and attached to the impaction device. The helical blade was then inserted over the guidewire. Its positioning was confirmed on both PA and lateral C-arm fluoroscopy. Next, the aiming guide for the helical blade was then utilized to compress across the site of the fracture and then the helical blade was locked into place through the proximal end of the nail. Following this, one distal interlocking bolt was inserted through a 5mm incision distally. Final PA and lateral C-arm fluoroscopic images were then obtained. All images demonstrated an anatomic reduction at the site of the fracture along with appropriate implant positioning and length in all views. These images were printed and saved. Next, all incisions were copiously irrigated with sterile normal saline. The fascia was re-approximated with 2-0 vicryl sutures, the subcutaneous plane was re-approximated with 3-0 vicryl sutures, and the skin was re-approximated with surgical angie. The skin was then cleaned with sterile normal saline and dried. Next, a mixture of 1% lidocaine and 0.5% Marcaine was then utilized to provide local anesthesia at the operative sites. Xeroform gauze dressings were then applied followed by a dry sterile dressing and an occlusive Ioban wrap. The patient was then reversed from anesthesia and transferred from the operating room table onto the post-operative gurney and transferred from the operating room to the PACU in stable condition. POST-OPERATIVE PLAN: The current dressings will be left in place for the next 2 days. The patient may WBAT on the right lower extremity. /[id number]/MODL MTDD
[2017-03-07] MEDS: HYDROCODONE/APAP 5/325 TAB PO PRN ×3 (07:16→20:30)
[2017-03-07] MEDS: DILTIAZEM CD 120 MG CAP PO SCH (08:53)
[2017-03-07] MEDS: CHOLECALCIFEROL VIT D3 1,000 UNITS TAB PO SCH (08:56)
[2017-03-07] MEDS: PRESERVISION AREDS2 FORMULA EYE VIT 1 EACH PO SCH ×2 (08:56→20:23)
[2017-03-07] MEDS: DULoxetine 60 MG CAP PO SCH (08:56)
[2017-03-07] MEDS ORDERED: oxyCODONE IR 5 MG TAB PO PRN (11:20)
[2017-03-07] MEDS: LISINOPRIL 20 MG TAB PO SCH (15:57)
--- NOTE | 2017-03-07 16:15 | ASMTCMCOM ---
CM Note CM Note Notes: Met with patient and family regarding discharge poc. PT/OT recommending SNF, patient and family in agreement. Patient requesting referrals be sent ot [facility] and [facility] in [place]. Spoke with Lara at [facility], she feels female bed may be available by Saturday. Referral also sent to [facility] as a back-up plan. Patient would like to discuss the facility options with this evening. CM will follow-up with facilities and patient on Saturday. Date Signed: 03/07/2017 04:15 PM Electronically Signed By:Fanta Arevalo RN
[2017-03-07] MEDS: ACETAMINOPHEN 325 MG TAB PO SCH ×2 (17:27→20:24)
--- NOTE | 2017-03-07 19:55 | HOSPPROG ---
Hospitalist Progress Note Assessment/Plan: #Right hip intertrochanteric femur fracture: s/p fixation nail #Acute hip pain: schedule APAP, PRN oxycodone #Chronic hypoxemic resp failure: stable #Pulmonary HTN: cont oxygen #HTN: cont home meds #Osteoporosis: Vit D/calcium #Acute blood loss anemia: 2/2 surgery #DVT ppx: SCDs #Diet: regular #Disp: cont inpatient care for IV pain control, PT/OT Subjective: pain with movement Objective: Vital Signs Temp Pulse Resp BP Pulse Ox 37.3 C 70 16 115/68 91 L 03/07/17 16:00 03/07/17 16:00 03/07/17 16:00 03/07/17 16:00 03/07/17 16:00 Laboratory Results 03/07/17 04:19 03/07/17 04:19 03/06/17 03/07/17 03/08/17 05:59 05:59 05:59 Intake Total 500 1001 Output Total 400 200 Balance 100 801 - Physical Exam Constitutional: no apparent distress Eyes: PERRL Ears, Nose, Mouth, Throat: moist mucous membranes Cardiovascular: regular rate and rhythym Respiratory: no respiratory distress, no rales or rhonchi Gastrointestinal: normoactive bowel sounds Skin: warm Musculoskeletal: other (right hip incision dressed, C/D/I) Neurologic: AAOx3, CN II-XII Intact ICD10 Worksheet Patient Problems: Problems Problem Status Onset Fracture of right hip Acute Intertrochanteric fracture of right hip Acute
[2017-03-07] MEDS ORDERED: diphenhydrAMINE 25 MG CAP PO PRN (20:11)
[2017-03-08 06:28] LABS: HEMATOCRIT 36.2 % (38.0-47.0); HEMOGLOBIN 11.3 g/dL (12.6-16.3); MEAN CELL HEMOGLOBIN 30.1 pg (27.9-34.1); MEAN CELL HEMOGLOBIN CONCENTR. 31.2 g/dL (32.4-36.7); MEAN CELL VOLUME 96.5 fL (81.5-99.8); RED BLOOD CELL COUNT 3.75 10^6/uL (4.18-5.33); RED CELL DISTRIBUTION WIDTH 14.8 % (11.5-15.2)
[2017-03-08] MEDS: CYCLOBENZAPRINE 10 MG TAB PO PRN (06:46)
[2017-03-08] MEDS: LISINOPRIL 20 MG TAB PO SCH ×2 (09:27→09:44)
[2017-03-08] MEDS: PRESERVISION AREDS2 FORMULA EYE VIT 1 EACH PO SCH ×2 (09:27→21:47)
[2017-03-08] MEDS: DILTIAZEM CD 120 MG CAP PO SCH (09:27)
[2017-03-08] MEDS: CHOLECALCIFEROL VIT D3 1,000 UNITS TAB PO SCH (09:30)
[2017-03-08] MEDS: DULoxetine 60 MG CAP PO SCH (09:30)
[2017-03-08] MEDS: ACETAMINOPHEN 325 MG TAB PO SCH ×3 (09:30→21:47)
--- NOTE | 2017-03-08 15:03 | SOAPPROG ---
SOAP Progress Note Assessment/Plan: Assessment:Sonja is a pleasant 76 year old female now POD#2 from TFN right intertrochanteric femur fracture. She reports she is doing well with pain in the right hip with weight bearing. PE: Dressing CDI. Dressing removed. No erythema, warmth, or drainage surrounding the incisions. There is a small skin tear proximal to the dressing. NV intact RLE No pain with gentle ROM of the bilateral hip joints No pain with calf compression. Compartments are soft. Plan: 1. Keep dressing clean and dry. Reinforce dressing if needed 2. Pt may weight bear as tolerated with an assistive device 3. PT/OT 4. Patient may be discharged once cleared from hospitalist care. Prescriptions for pain medication are in chart. Follow up with Dr. Salinas in two weeks from surgery date for repeat evaluation, repeat radiographs, and staple removal. 03/08/17 14:59 Objective: Vital Signs Temp Pulse Resp BP Pulse Ox 37.4 C 71 20 137/79 H 95 03/08/17 07:40 03/08/17 07:40 03/08/17 07:40 03/08/17 07:40 03/08/17 09:46 Laboratory Results 03/08/17 05:54 03/07/17 04:19 03/07/17 03/08/17 03/09/17 05:59 05:59 05:59 Intake Total 500 1001 350 Output Total 400 500 100 Balance 100 501 250 ICD10 Worksheet Patient Problems: Problems Problem Status Onset Fracture of right hip Acute Intertrochanteric fracture of right hip Acute
--- NOTE | 2017-03-08 15:04 | ASMTCMCOM ---
CM Note CM Note Notes: [facility] no female beds currently, pt updated and will d/c to [facility] in [place] who accept pt. Date Signed: 03/08/2017 03:04 PM Electronically Signed By:LYDIA Leal
--- NOTE | 2017-03-08 19:22 | HOSPPROG ---
Hospitalist Progress Note Assessment/Plan: #Right hip intertrochanteric femur fracture: s/p fixation nail #Acute hip pain: schedule APAP, PRN oxycodone. Stop dilaudid and [place] with confusion #Acute toxic encephalopathy: due to opioids. APAP and oxy only #Chronic hypoxemic resp failure: stable #Pulmonary HTN: cont oxygen #HTN: cont home meds #Osteoporosis: Vit D/calcium #Acute blood loss anemia: 2/2 surgery. H/H stable #DVT ppx: SCDs #Diet: regular #Disp: cont inpatient care for IV pain control, PT/OT Subjective: "felt loopy" this morning after pain meds Objective: Vital Signs Temp Pulse Resp BP Pulse Ox 37.6 C 74 22 H 125/70 H 91 L 03/08/17 15:42 03/08/17 15:42 03/08/17 15:42 03/08/17 15:42 03/08/17 15:42 Laboratory Results 03/08/17 05:54 03/07/17 04:19 03/07/17 03/08/17 03/09/17 05:59 05:59 05:59 Intake Total 500 1001 350 Output Total 400 500 700 Balance 100 501 -350 - Physical Exam Constitutional: no apparent distress, other (sleeping, groggy) Eyes: PERRL Ears, Nose, Mouth, Throat: moist mucous membranes Cardiovascular: regular rate and rhythym, no murmur, rub, or gallop Respiratory: no respiratory distress, no rales or rhonchi Gastrointestinal: normoactive bowel sounds, soft, non-tender abdomen Genitourinary: no bladder fullness Musculoskeletal: other (right hip incision site dressed, CDI) Neurologic: AAOx3 Psychiatric: interacting appropriately (but slow to answer questions) ICD10 Worksheet Patient Problems: Problems Problem Status Onset Fracture of right hip Acute Intertrochanteric fracture of right hip Acute
[2017-03-08] MEDS: oxyCODONE IR 5 MG TAB PO PRN (21:47)
[2017-03-09 05:12] LABS: HEMATOCRIT 34.1 % (38.0-47.0); HEMOGLOBIN 10.5 g/dL (12.6-16.3); MEAN CELL HEMOGLOBIN 29.4 pg (27.9-34.1); MEAN CELL HEMOGLOBIN CONCENTR. 30.8 g/dL (32.4-36.7); MEAN CELL VOLUME 95.5 fL (81.5-99.8); RED BLOOD CELL COUNT 3.57 10^6/uL (4.18-5.33); RED CELL DISTRIBUTION WIDTH 14.6 % (11.5-15.2)
[2017-03-09 08:03] VITALS: BP 108/75; PULSE 60; RESP 18; TEMP 98.2; O2SAT 94
--- NOTE | 2017-03-09 08:46 | HOSPPROG ---
Hospitalist Progress Note Assessment/Plan: #Right hip intertrochanteric femur fracture: s/p fixation nail #Acute hip pain: schedule APAP, PRN oxycodone. Stop dilaudid and [place] with confusion #Acute toxic encephalopathy: due to opioids. APAP and oxy only #Chronic hypoxemic resp failure: stable #Pulmonary HTN: cont oxygen #HTN: cont home meds #Osteoporosis: Vit D/calcium #Acute blood loss anemia: 2/2 surgery. H/H stable #DVT ppx: SCDs #Diet: regular #Disp: DC today. ASA x 1 week for anticoagulation Subjective: pain controlled. Not confused today Objective: Vital Signs Temp Pulse Resp BP Pulse Ox 36.8 C 60 18 108/75 94 03/09/17 08:00 03/09/17 08:00 03/09/17 08:00 03/09/17 08:00 03/09/17 08:00 Laboratory Results 03/09/17 04:23 03/07/17 04:19 03/08/17 03/09/17 03/10/17 05:59 05:59 05:59 Intake Total 1001 350 Output Total 500 900 Balance 501 -550 - Physical Exam Constitutional: no apparent distress Eyes: PERRL Ears, Nose, Mouth, Throat: moist mucous membranes Cardiovascular: regular rate and rhythym Respiratory: no respiratory distress Gastrointestinal: normoactive bowel sounds Genitourinary: no bladder fullness Skin: warm Musculoskeletal: other (right hip incision site CDI) Neurologic: AAOx3, CN II-XII Intact Psychiatric: interacting appropriately, not encephalopathic ICD10 Worksheet Patient Problems: Problems Problem Status Onset Fracture of right hip Acute Intertrochanteric fracture of right hip Acute
[2017-03-09] MEDS: DILTIAZEM CD 120 MG CAP PO SCH (08:50)
[2017-03-09] MEDS: CHOLECALCIFEROL VIT D3 1,000 UNITS TAB PO SCH (08:50)
[2017-03-09] MEDS: DULoxetine 60 MG CAP PO SCH (08:50)
[2017-03-09] MEDS: oxyCODONE IR 5 MG TAB PO PRN ×2 (08:50→13:53)
[2017-03-09] MEDS: LISINOPRIL 20 MG TAB PO SCH ×2 (08:51→08:52)
[2017-03-09] MEDS: PRESERVISION AREDS2 FORMULA EYE VIT 1 EACH PO SCH (08:51)
[2017-03-09] MEDS: ACETAMINOPHEN 325 MG TAB PO SCH ×2 (08:51→19:16)
[2017-03-09] MEDS ORDERED: IBUPROFEN 600 MG TAB PO PRN (13:13)
--- NOTE | 2017-03-09 14:16 | ASMTCMCOM ---
CM Note CM Note Notes: Pt was to discharge today, 03/09/2017, but Dr. Villavicencio decided to keep pt inpatient because of pain control. Plan will be for patient to discharge on Saturday. C/M will continue to follow. Date Signed: 03/09/2017 02:15 PM Electronically Signed By:LYDIA Lagunas
--- NOTE | 2017-03-09 14:54 | PDIAF ---
- Diagnosis Diagnosis: hip fracture, fall Code Status: Full Code - Medication Management Discharge Medications: Medications to Continue on Transfer Diltiazem Cd [Cardizem ER 120 MG (*)] 120 mg PO DAILY 03/23/12 [Last Taken 03/06] Lisinopril [Zestril 20 mg (*)] 20 mg PO DAILY 03/23/12 [Last Taken 03/06/17] Cholecalciferol Vit D3 [Vitamin D3 2000 units] 2,000 units PO DAILY 03/13/13 [ Last Taken 03/05/17] C/E/Zn/Cu/OM3/DHA/EPA/LUT/ZEAX [Preservision Areds 2 Softgel] 1 each PO BID [Last Taken 03/05/17 21:00] DULoxetine [Cymbalta 60 MG (*)] 60 mg PO DAILY 03/06/17 [Last Taken 03/06/17] Furosemide [Lasix 20 MG (*)] 20 mg PO Q3D PRN 03/06/17 [Last Taken 2 Days Ago ~ 03/04/17] Aspirin [Aspirin 325 mg (*)] 325 mg PO DAILY #7 tab 03/09/17 [Last Taken Unknown ] Furosemide [Lasix 20 MG (*)] 20 mg PO Q3D PRN tab 03/09/17 [Last Taken Unknown] Ibuprofen [Motrin (*)] 600 mg PO Q6HRS PRN tab 03/09/17 [Last Taken Unknown] oxyCODONE IR [Oxycodone Ir (*)] 5 mg PO Q6 PRN tab 03/09/17 [Last Taken Unknown ] Discharge Medications: Refer to the Discharge Home Medication list for PRN reason. - Orders Services needed: Registered Nurse, Certified [employer], Physical Therapy, Occupational Therapy Diet Recommendation: no restrictions on diet - Follow Up Care Current Providers and Referrals: Tae Polk MD [Primary Care Provider] - As per Instructions Jignesh Salinas MD [Medical Doctor] - follow up in 2 weeks (Call for appointment Mar 20 for repeat xray and staple removal)
--- NOTE | 2017-03-09 14:56 | GDS ---
[f rep st] DISCHARGE SUMMARY DISCHARGE DIAGNOSIS: 1. Right intertrochanteric nondisplaced fracture status post nail fixation. 2. Pulmonary hypertension. 3. Chronic hypoxemic respiratory failure. 4. Hypertension. 5. Osteoporosis. HISTORY OF PRESENT ILLNESS: A 76-year-old female who fell the day prior to admission while running errands. She landed on the right hip and buttock and was able to walk immediately and thought she just bruised herself. Over the course of the night, pain became much more intense and she and her decided to come to the ER for evaluation. Initial x-ray showed nondisplaced intratrochanteric fracture of the hip. HOSPITAL COURSE BY PROBLEM: 1. Right hip fracture: s/p trochanteric fixation nail on 03/06/2017 without complication. Follow up with Dr. Salinas in 2 weeks for repeat x-ray and staple removal. 2. Acute hip pain: controlled on oxycodone, Advil, and Tylenol. She did become slightly encephalopathic on a higher dose, so we will resume 5 mg q.6 hours. 3. Chronic hypoxemic respiratory failure: due to pulmonary hypertension. This remained stable. 4. Pulmonary hypertension. Stable. 5. Acute blood loss anemia. H/ H initially was 12/39; now 10/34. This is expected with surgery. Blood pressure stable and asymptomatic. 6. Osteoporosis. Continue calcium, vitamin D. DISPOSITION: Patient is stable for discharge. FOLLOWUP: 1. Dr. Salinas, 2 weeks, for repeat x-ray and staple removal. 2. Followup primary care physician, Dr. Polk. /[id number]/MODL MTDD
--- NOTE | 2017-03-11 14:15 | ASDISCHSUM ---
Discharge Information Plan Status:SNF Medically Cleared to Leave: Discharge Date:03/09/2017 05:16 PM D/C Disposition:Long-Term Facility ADT D/C Disposition:Long-Term Facility Projected Discharge Date:03/09/2017 11:00 AM Transportation at D/C: Discharge Delay Reason: Follow-Up Date:03/09/2017 11:00 AM Discharge Slot: Final Diagnosis: Placement Information Referral Type:*Jail/SNF Referral ID:[id number] Provider Name:[facility] Address 1:[address] [place] [address] Address 2: City:[place] Selection Factors: State:[place] Referral Type:*Jail/SNF Referral ID:[id number] Provider Name: Address 1: Phone Number: Address 2: Fax Number: City: Selection Factors: State: Referral Type:*Jail/SNF Referral ID:[id number] Provider Name: Address 1: Phone Number: Address 2: Fax Number: City: Selection Factors: State: Patient Contact Information Contact Name:KIRSTIN Relationship: Address:[address] City:[place] Alternate Phone: State/Zip Code:[place] [address] Email: Financial Information Financial Class: Primary Plan Desc:MEDICARE INPATIENT Primary Plan Number:[id number] [facility] Secondary Plan Number:[id number] Assessment Information [facility] Initial CM Assessment Living Arrangements What is your living Answers: With Spouse arrangement? Who do you live with? Type Of Residence What kind of residence do Answers: House you live in? Stairs in Home Answers: Yes Notes: Please see note Environment Services Used Prior to Admission Home Services Used Prior Answers: Homemaking to Admission Other Services Used Prior to Admission Notes: Physical Therapy 2x per week for compressed T5 Home/Community Service Agency Name(s) Notes: Helen Varela [phone] Please see note Case Management Evaluation Functional: Able to Answers: Yes return Home with Prior Level of Function/Care Discharge Plan Comments Coordination Status Comments Notes: The pt is a 76 year old female who arrived by private vehicle to [facility] with her (Tavares). Pt reported that she fell on 03/05 while running errands. She was able to continue with her errands but began to experience a great deal of pain later in the day. Pt reported that she and her have been for 57 years and they live in a ranch style home in [place], about 5 minutes from the hospital. There are 13 stairs in the home to access the laundry room; pt indicated that she does not use them and her takes care of the laundry. Pt reported that they have a director of digital technology every other week. Pt has 3 children who live in the area and they are aware that she is in [facility]. Her oldest daughter is confined to a wheelchair due to MS and the other two have cold/flu symptoms. Pt stated that she is very close to her children and indicated she would rather not be exposed to additional illness at this anaid. Pt reported that she attends outpatient physical therapy 2x per week with Helen Goode for a compressed T5. Ms. Goode works at [employer] hr business partner ([phone]) and she has her own practice hr business partner (no additional numbers available). Pt indicated pt may consider treatment in home. DC plans TBD, CM to follow. Date Signed: 03/06/2017 10:15 AM Electronically Signed By:Cyndy Wong LCSW [facility] CM Progress Note CM Note CM Note Notes: Met with patient and family regarding discharge poc. PT/OT recommending SNF, patient and family in agreement. Patient requesting [facility] ot [facility] in [place]. [facility] feels [facility] available by Saturday. Referral also sent to [facility] as a back-up plan. Patient would like to discuss the facility options with this evening. CM will follow-up with facilities and patient on Saturday. Date Signed: 03/07/2017 04:15 PM Electronically Signed By:Fanta Arevalo RN [facility] CM Progress Note CM Note CM Note Notes: [facility] no female beds currently, pt updated and will d/c to [facility] in [place] who accept pt. Date Signed: 03/08/2017 03:04 PM Electronically Signed By:LYDIA Leal [facility] CM Progress Note CM Note CM Note Notes: Pt was to discharge today, 03/09/2017, but Dr. Villavicencio decided to keep pt inpatient because of pain control. Plan will be for patient to discharge on Saturday. C/M will continue to follow. Date Signed: 03/09/2017 02:15 PM Electronically Signed By:LYDIA Lagunas Intervention Information Intervention Type:*IM-Signed Date of Service:03/08/2017 03:38 PM Patient Type:Inpatient Staff Member:Camryn Desai Hours: Discipline: Severity: Comment:
== END 2017-03-09 17:16 | DRG 481 ==
LOC: F3N 11:39
PROVIDERS: ADMIT Family Medicine; ATTEND Family Medicine
PROC: 0QS606Z Reposition Right Upper Femur with Intramedullary Internal Fixation Device, Open Approach (ICD-10-PCS; principal; 2017-03-06 16:45)
DX: S72.144A Nondisplaced intertrochanteric fracture of right femur, initial encounter for closed fracture (principal); D62 Acute posthemorrhagic anemia; J96.11 Chronic respiratory failure with hypoxia; I27.2 Other secondary pulmonary hypertension; I10 Essential (primary) hypertension; M81.0 Age-related osteoporosis without current pathological fracture; W01.0XXA Fall on same level from slipping, tripping and stumbling without subsequent striking against object, initial encounter
CPT/HCPCS: 97110-GP; 97116-GP; 97162-GP; 97165-GO; 97530-GO; 97530-GP; C1713; G8978-GP-CK; G8979-GP-CJ; G8987-GO-CK; G8988-GO-CI; J0690; J1100; J1170; J2405; J2704; J3010

== ENCOUNTER 2017-05-10 14:12 | Inpatient (IN) | payer OTHER ==
--- NOTE | 2017-05-10 14:33 | EDPHY ---
H & P Stated Complaint: Sent by Dr Ann office, recent surgery for wound infection. Time Seen by Provider: 05/10/17 14:32 - Personal History Current Tetanus Diphtheria and Acellular Pertussis (TDAP): Yes - Medical/Surgical History Hx Asthma: No Hx Chronic Respiratory Disease: Yes Hx Diabetes: No Hx Cardiac Disease: No Hx Renal Disease: No Hx Cirrhosis: No Hx Alcoholism: No Hx HIV/AIDS: No Hx Splenectomy or Spleen Trauma: No Other PMH: Bilateral knee replacements, arm fractures, [place], pulmonary htn, Surgery for wound infection - 04/26/17. - Social History Smoking Status: Never smoked Constitutional: Initial Vital Signs Temperature (C) 39.6 C H 05/10/17 14:15 Heart Rate 68 05/10/17 14:15 Respiratory Rate 16 05/10/17 14:15 Blood Pressure 146/82 H 05/10/17 14:15 O2 Sat (%) 93 05/10/17 14:15 O2 Delivery Mode Room Air Allergies/Adverse Reactions: shellfish derived Allergy (Intermediate, Verified 03/06/17 07:37) FACIAL SWELLING SEASONAL Allergy (Mild, Uncoded 12/07/13 14:19) RUNNY NOSE Home Medications: Medication Instructions Recorded Diltiazem Cd [Cardizem ER 120 MG 120 mg PO DAILY 03/23/12 (*)] Lisinopril [Zestril 20 mg (*)] 20 mg PO DAILY 03/23/12 Cholecalciferol Vit D3 [Vitamin D3 2,000 units PO DAILY 03/13/13 2000 units] C/E/Zn/Cu/OM3/DHA/EPA/LUT/ZEAX 1 each PO BID 03/06/17 [Preservision Areds 2 Softgel] DULoxetine [Cymbalta 60 MG (*)] 60 mg PO DAILY 03/06/17 Furosemide [Lasix 20 MG (*)] 20 mg PO Q3D PRN 03/06/17 Aspirin [Aspirin 325 mg (*)] 325 mg PO DAILY #7 tab 03/09/17 Furosemide [Lasix 20 MG (*)] 20 mg PO Q3D PRN tab 03/09/17 Ibuprofen [Motrin (*)] 600 mg PO Q6HRS PRN tab 03/09/17 oxyCODONE IR [Oxycodone Ir (*)] 5 mg PO Q6 PRN tab 03/09/17 Medical Decision Making ED Course/Re-evaluation: CHIEF COMPLAINT: Failure to thrive, decubitus ulcer HISTORY OF PRESENT ILLNESS: The patient is a 76 y/o female sent her by Dr. Mensah, general surgeon, complaining of a wound infection after a recent surgery. The patient has a decubitus ulcer and needs a flap repair at [facility]. She was discharged to a nursing facility for failure to thrive after the surgery as well as to wait for the flap repair surgery. However, Medicare will not pay for the flap repair procedure unless the patient is hospitalized for 3 days, which is what brings the patient in today. Denies fevers, chest pain, abdominal pain, numbness or other pertinent symptoms. REVIEW OF SYSTEMS: A 10 point review of systems was performed and is negative with the exception of the elements mentioned in the history of present illness. PHYSICAL EXAM: HR, BP, O2 Sat, RR. Temp noted General Appearance: Alert, well hydrated, appropriate, and non-toxic appearing. Head: Atraumatic without scalp tenderness or obvious injury Eyes: Pupils equal, round, reactive to light and accommodation, EOMI, no trauma , no injection. Ears: Clear bilaterally, no perforation, normal landmarks Nose: Atraumatic, no rhinorrhea, clear. Throat: Mucus membranes moist. Neck: Supple, nontender, no lymphadenopathy. Respiratory: No retractions, no distress, no wheezes, and no accessory muscle use. Lungs are clear to auscultation bilaterally. Cardiovascular: Regular rate and rhythm, no murmurs, rubs, or gallops. Good capillary refill all extremities. Gastrointestinal: Abdomen is soft, nontender, non-distended, no masses, no rebound, no guarding, no peritoneal signs. Musculoskeletal: Normal active ROM of all extremities, atraumatic. Neurological: Alert, appropriate, and interactive. Non-focal neuro Skin: Decubitus ulcer with wound vac on buttock. No rashes, good turgor, no nodules on palpation. Past medical history: Arm fractures, pulmonary hypertension Past surgical history: Surgery for wound infection (04/26/17), bilateral knee replacements, cholecystectomy Family history: Denies Social history: Family at bedside, lives in [place], retired DIFFERENTIAL DIAGNOSIS: The differential diagnosis for the patient's decubitus ulcer included but was not limited to failure to thrive, non-healing decubitus ulcer, poor PO intake, dehydration. MEDICAL DECISION MAKING: The patient is a 76 y/o female sent her by Dr. Mensah, general surgeon, presenting with a decubitus ulcer with a wound vac in place on her buttock. The patient needs a flap repair surgery for the ulcer, which can only be done at [facility]. Medicare will only pay for this procedure if she spends 3 days in the hospital. Plan on labs and admission. 1452: Consulted with Dr. Kemp, hospitalist, he accepts admission of this patient. Reassessed patient and discussed plan for admission; patient and her family are comfortable with this plan. Departure - Departure Disposition: [facility] Inpatient Acute Clinical Impression: Decubitus ulcer Qualifiers: Pressure ulcer location: buttock Pressure ulcer stage: unspecified pressure ulcer stage Laterality: unspecified laterality Qualified Code(s): L89.309 - Pressure ulcer of unspecified buttock, unspecified stage Condition: Fair Report Scribed for: Murtaza Tapia Report Scribed by: Rubina Benavides Date of Report: 05/10/17 Time of Report: 15:06
[2017-05-10 15:09] LABS: % IMMATURE GRANULYOCYTES 0.4 % (0.0-1.1); ABSOLUTE IMMATURE GRANULOCYTES 0.04 10^3/uL (0.00-0.10); ADD DIFF? NO; ADD MORPH? NO; ADD SCAN? NO; ATYPICAL LYMPHOCYTE FLAG 0 (0-99); FRAGMENT RBC FLAG 20 (0-99); HEMATOCRIT 36.8 % (38.0-47.0); HEMOGLOBIN 11.7 g/dL (12.6-16.3); LEFT SHIFT FLG 0 (0-99); LIPEMIA HEMOLYSIS FLAG 80 (0-99); MEAN CELL HEMOGLOBIN 28.8 pg (27.9-34.1); MEAN CELL HEMOGLOBIN CONCENTR. 31.8 g/dL (32.4-36.7); MEAN CELL VOLUME 90.6 fL (81.5-99.8); MEAN PLATELET VOLUME 9.6 fL (8.7-11.7); PLATELET CLUMPS FLAG 0 (0-99); PLATELET COUNT 273 10^3/uL (150-400); RED BLOOD CELL COUNT 4.06 10^6/uL (4.18-5.33); RED CELL DISTRIBUTION WIDTH 17.7 % (11.5-15.2)
[2017-05-10 15:25] LABS: ANION GAP 7 mEq/L (8-16); CALCIUM 9.3 mg/dL (8.5-10.4); CARBON DIOXIDE 33 mEq/l (22-31); CHLORIDE 101 mEq/L (97-110); CREATININE 0.6 mg/dL (0.6-1.0); GLOMERULAR FILTRATION RATE > 60; GLUCOSE 94 mg/dL (70-100); SODIUM 141 mEq/L (134-144)
[2017-05-10] MEDS ORDERED: ONDANSETRON 4 MG/2 ML VIAL IVP PRN (18:28)
[2017-05-10] MEDS ORDERED: ONDANSETRON DISINTEGRATING 4 MG TAB PO PRN (18:28)
[2017-05-10] MEDS ORDERED: ACETAMINOPHEN 325 MG TAB PO PRN (18:28)
[2017-05-10] MEDS ORDERED: CYANO/VITAMIN B12 1000 MCG/ML VIAL IM SCH (18:30)
[2017-05-10] MEDS ORDERED: NS 1,000 ML IV SCH (19:00)
--- NOTE | 2017-05-10 19:35 | GHP ---
[f rep st] HISTORY AND PHYSICAL DATE OF ADMISSION: 05/10/2017 HISTORY OF PRESENT ILLNESS: The patient is a pleasant 76-year-old female with a history of pulmonary hypertension who sustained an intertrochanteric hip fracture in February of this year which was cared for at this hospital who was subsequently discharged to a correction facility where she developed a large decubitus ulcer requiring bedside debridements. She was discharged from here to [facility] in [place] and just recently hospitalized at [facility] with a "bloodstream infection." She is currently on Augmentin and Flagyl although the exact speciation of this is unclear to me. Recently she has had no fevers or chills. No nausea, vomiting or diarrhea. Her Krause was last changed last week but it had been 2 months prior to that. I do have suspicion that this was a urinary source. She is hospitalized for further evaluation of her decubitus wound including surgical management with Dr. Sherice Mensah with whom I have discussed the case. REVIEW OF SYSTEMS: A complete 10-point review of systems was conducted and negative except that noted in the HPI. PAST MEDICAL HISTORY: 1. Pulmonary hypertension with chronic hypoxia. 2. Bilateral knee replacement. 3. Cholecystectomy. 4. History broken arms with IM rods bilaterally. 5. Hypertension. 6. Osteopenia. 7. History of cardiac catheterization showing secondary pulmonary hypertension with LV end-diastolic pressure elevated but no significant coronary disease. 8. Hip fracture. 9. Decubitus ulcer. 10. Indwelling Krause. SOCIAL HISTORY: Lives independently in [place] with her and 3 adult children. No tobacco. One or 2 glasses of wine on the weekends only. FAMILY HISTORY: Parents . ALLERGIES: Shellfish. HOME MEDICATIONS: Ibuprofen, amoxicillin, clavulanate, vitamin B12, diltiazem, duloxetine, Lasix, lactobacillus, lisinopril, metronidazole, multivitamin, senna. PHYSICAL EXAMINATION: PRESENTING VITALS: Temperature 39.6, blood pressure 146/ 82, pulse 68, breathing 16 times a minute, 92% on room air. She is currently afebrile. GENERAL: No acute distress. HEENT: Sclerae anicteric. Oropharynx clear. Mucous membranes moist. NECK: Supple. No lymphadenopathy or JVD. LUNGS: Clear to auscultation bilaterally. HEART: S1, S2. ABDOMEN: Soft, nontender, nondistended. LOWER EXTREMITIES: No edema. SKIN: She has the wound VAC in place. There is no surrounding cellulitis. The nurse thought there was a gel in there, but no purulence. There was no odor. LABORATORY: White count 9.8, hematocrit 36, platelets are 273,000. Sodium 141 , potassium 4.0, chloride 101, bicarb 33, BUN 22, creatinine 0.6. There is no imaging. I discussed the case with Dr. Sherice Mensah. ASSESSMENT/PLAN: A 76-year-old female with complex recent history, admitted for management of a wound and also found to have incidental fever. 1. Fever. There is no clear source. Her urine is clear and it was changed week ago so I do not think urinary catheter associated urinary tract infection is in play. I will hold on urinalysis as it will almost certainly be positive. I believe the source probably is her wound. I will also order a chest x-ray. I will draw some blood cultures. I will continue her current antibiotics. I will have Infectious Disease see her. 2. Decubitus wound ulcer. Check albumin and pre-albumin. seen by Surgery. 3. Pulmonary hypertension. Continue oxygen. 4. Hypoxemia. Add incentive spirometry. 5. Prophylaxis. Pharmacologic prophylaxis indicated. 6. Hypertension. Continue antihypertensives. 7. Volume status. I think that the patient is a little bit volume down. I will hold her Lasix, will give her a liter of fluids. DISPOSITION: Inpatient status. /[id number]/MODL MTDD
--- NOTE | 2017-05-10 20:04 | PDMN ---
Medical Necessity Medical necessity: C/M review: est. > 2 MN LOS for eval and TX of acute fever of unclear etiology, large decubitus wound ulcer with wound vac present on admit , hypoxia requiring planned Infectious Disease consult, Wound Care consult, Dietary consult, IV fluids x 1 bag, ongoing wound vac management, pulse oximetry , supplemental O2, acute inpt PT/OT, comorbid pulmonary hypertension, hypertension, chronic indwelling Krause catheter, hx hospitalization for intertrochanteric hip fracture 02/2017, discharged to SNF where patient developed large decubitus ulcer requiring bedside debridements, recently hospitalized with a 'bloodstream infection" per H/P.
[2017-05-10] MEDS: AMOXICILLIN/CLAVULANATE POT 875/125 MG TAB PO SCH (20:31)
[2017-05-10] MEDS: SENNOSIDES 1 TAB PO SCH (20:32)
[2017-05-10] MEDS: metroNIDAZOLE 500 MG TAB PO SCH (20:32)
[2017-05-11 05:01] LABS: ALBUMIN 2.6 g/dL (3.5-5.0); ANION GAP 4 mEq/L (8-16); CALCIUM 8.7 mg/dL (8.5-10.4); CARBON DIOXIDE 36 mEq/l (22-31); CHLORIDE 104 mEq/L (97-110); CREATININE 0.5 mg/dL (0.6-1.0); GLOMERULAR FILTRATION RATE > 60; GLUCOSE 95 mg/dL (70-100); POTASSIUM 3.8 mEq/L (3.5-5.2); SODIUM 144 mEq/L (134-144)
[2017-05-11 05:08] LABS: PREALBUMIN 17.6 mg/dL (17.6-36.0)
[2017-05-11] MEDS ORDERED: DULoxetine 60 MG CAP PO SCH (09:00)
[2017-05-11] MEDS ORDERED: FUROSEMIDE 20 MG TAB PO SCH (09:00)
[2017-05-11] MEDS: AMOXICILLIN/CLAVULANATE POT 875/125 MG TAB PO SCH ×2 (09:35→21:48)
[2017-05-11] MEDS: CHOLECALCIFEROL VIT D3 1,000 UNITS TAB PO SCH (09:36)
[2017-05-11] MEDS: DILTIAZEM CD 120 MG CAP PO SCH (09:37)
[2017-05-11] MEDS: metroNIDAZOLE 500 MG TAB PO SCH ×2 (09:41→15:50)
[2017-05-11] MEDS: ENOXAPARIN 40 MG/0.4 ML SYR SC SCH (09:41)
[2017-05-11] MEDS: LISINOPRIL 20 MG TAB PO SCH (09:41)
[2017-05-11] MEDS: SENNOSIDES 1 TAB PO SCH ×2 (09:45→21:49)
--- NOTE | 2017-05-11 10:23 | WOCRNPDOC ---
LUIS CARL[facility] Advanced Assessment Note - Skin Integrity Problem, Advanced Assess Right Medial Buttock Pressure Injury Dressing Type: Black Vac Foam, Wound Vac Dressing Description: Clean/Dry, Intact Exudate Amount: Minimal Exudate Color: Reddish/Yellow Exudate Characteristic(s): Serosanguinous [place]acey Wound Tissue: Blanching, Erythema Stacey Wound Swelling: None Pressure Injury Present on Admit: Yes (Will stage with take down of wound vac) Skin Integrity Problem Comment: Patient admitted to [facility] to facilitate transfer of care to facility that can flap the pressure injury to her coccyx that she developed after fall several months ago. Presently, wound vac in place and functioning well with no leaks at -125mmHg. Vac is bridged to patient's left hip. Patient tolerating therapy well. Patient confirms vac changed yesterday, 05/[address] [facility] Mensah OK with placing patient on a [facility] vac change schedule. Wound care will round again on Saturday.
[2017-05-11] MEDS: MULTIVITAMINS 1 EACH TAB PO SCH (10:42)
[2017-05-11] MEDS: LACTOBACILLUS ACIDOPHILUS PO SCH (10:42)
[2017-05-11] MEDS: DULoxetine 30 MG CAP PO SCH (10:42)
--- NOTE | 2017-05-11 12:26 | SOAPPROG ---
SOAP Progress Note Assessment/Plan: Assessment: well known to me from outpatient wound healing center Had debridement at [facility] and sent to SNF Needs flap to cover sacral decubitus. [facility] would be a good choice Failure to Thrive Admitted to achieve 3 midnights per Medicare so that she can go to LTAC Plan: 05/11/17 12:24 Objective: Vital Signs Temp Pulse Resp BP Pulse Ox 36.4 C 63 16 129/73 H 90 L 05/11/17 07:57 05/11/17 09:37 05/11/17 07:57 05/11/17 09:37 05/11/17 08:40 Laboratory Results 05/10/17 15:00 05/11/17 04:35 05/10/17 05/11/17 05/12/17 05:59 05:59 05:59 Intake Total 975 Output Total 855 Balance 120 ICD10 Worksheet Patient Problems: Problems Problem Status Onset Decubitus ulcer Acute Fracture of right hip Acute Intertrochanteric fracture of right hip Acute
--- NOTE | 2017-05-11 13:29 | HOSPPROG ---
Hospitalist Progress Note Assessment/Plan: # Fevers - acute - 39.6 on presentation - suspect 07/19 decubitus wound Blood culture 05/10 NGTD - creatinine normal - cont current antibiotics - cont wound care - Dr. Mensah following # Decubitus ulceration - present on admission - will need surgical intervention per Dr. Mensah - cont wound care and antibiotics - cont rotating # chronic hypoxic resp failure 07/19 PHTN - CXR (personally reviewed and interpreted) bibasilar atelectasis and query vasc congestion oxygen saturations 94% on 2L - cont supplemental O2 # Failure to Thrive - pt not succeeding in her current SNF - consult dietary - anticipate will need LTAC # HTN- cont home meds # proph - lovenox # diet- regualr - need dietary consultation # dispo- > 2MN as presenting with complicate wound which needs care and disposition to a higher level of care I have discussed the case with RN- will consult dietary for recs related to nutrition Subjective: no SOB Objective: Vital Signs Temp Pulse Resp BP Pulse Ox 36.4 C 63 16 129/73 H 90 L 05/11/17 07:57 05/11/17 09:37 05/11/17 07:57 05/11/17 09:37 05/11/17 08:40 Laboratory Results 05/10/17 15:00 05/11/17 04:35 05/10/17 05/11/17 05/12/17 05:59 05:59 05:59 Intake Total 975 Output Total 855 Balance 120 - Physical Exam Constitutional: appears nourished Eyes: anicteric sclera Ears, Nose, Mouth, Throat: moist mucous membranes Cardiovascular: regular rate and rhythym Respiratory: no respiratory distress Gastrointestinal: normoactive bowel sounds Genitourinary: no bladder fullness Skin: warm Musculoskeletal: No asymmetric calves Neurologic: AAOx3 Psychiatric: interacting appropriately Lymph, Heme, Immunologic: no cervical LAD ICD10 Worksheet Patient Problems: Problems Problem Status Onset Decubitus ulcer Acute Fracture of right hip Acute Intertrochanteric fracture of right hip Acute
--- NOTE | 2017-05-11 14:24 | ASMTCASEMG ---
Living Arrangements What is your living Answers: With Spouse arrangement? Who do you live with? Type Of Residence What kind of residence do Answers: House you live in? Discharge Plan Comments Coordination Status Comments Notes: Pt is a 76 y/o female admitted for decubitus ulcer requiring muscle flap. CM spoke w/ Dr. Mensah regarding d/c POC. The recommendation is for her to go to LTAC at [facility]. CM made referral there. NAHOMI spoke w/ Shane at [facility] and was informed that he will have to review the clinical on Saturday w/ his team. Shane reports that under new Medicare guidelines that pt needs to be in the ICU for 3 days in order to qualify for LTAC. CM to follow. Plan: LTAC at [facility] Date Signed: 05/11/2017 02:24 PM Electronically Signed By:VERNON Foley
[2017-05-11] MEDS: IBUPROFEN 200 MG TAB PO PRN (17:08)
[2017-05-11] MEDS: AMPICILLIN/SULBACTAM 3 GM in NS 100 ML IV SCH (23:59)
--- NOTE | 2017-05-12 01:09 | GCON ---
[f rep st] CONSULTATION INPATIENT INFECTIOUS DISEASE CONSULTATION REFERRING PHYSICIAN: David Kemp MD REASON FOR REFERRAL: Fevers secondary to sacral decubitus ulcer infection. HISTORY OF PRESENT ILLNESS: The patient had been recently hospitalized at [facility] w ith a bloodstream infection, felt to be from the same source. The patient was on Augmentin and Flagy l on discharge from [facility]. Patient was referred into this hospital for further ev aluation of her decubitus wound, including surgical management with Dr. Dewitt. Currently, the patien t is resting comfortably in her hospital bed. She has a friend in the room with her. She has no par ticular complaints. She is aware of the surgical plan to debride and close or flap cover the decubit us ulcers. PAST MEDICAL HISTORY: 1. Pulmonary hypertension. 2. Hypertension. 3. Osteopenia. 4. History of a hip fracture. 5. Decubitus ulcers. 6. Indwelling Krause catheter. PAST SURGICAL HISTORY: 1. Status post bilateral knee replacements. 2. Status post cholecystectomy. 3. Status post intramedullary nehemiah placements in both arms. 4. History of cardiac catheterization. ANTIBIOTICS: 1. Augmentin. 2. Metronidazole. ALLERGIES: Patient is allergic to shellfish. SOCIAL HISTORY: The patient lives with her and 3 children. Denies any tobacco use. Occasio nal glass of wine. FAMILY HISTORY: Reviewed but noncontributory. REVIEW OF SYSTEMS: Other than that detailed above in History of Present Illness, a comprehensive 10- system review is negative. PHYSICAL EXAMINATION: VITAL SIGNS: Temperature maximum is 39.6, temperature current is 36.4; heart rate was 59; respiratory rate is 16; blood pressure is 153/82. GENERAL: The patient is a well-forme d, well-nourished, pleasant, older female in no acute distress. She is not toxic in appearance. She is alert and oriented x3. She has a pleasant demeanor. HEENT: Normocephalic for age. Atraumatic. No scleral icterus. No oral lesion or drainage from the nares. Eyes: Lids and conjunctivae are w ithin normal limits. Pupils are equal and round bilaterally. NECK: Supple. No meningismus. LUNGS : Clear to auscultation bilaterally. Good effort. HEART: Regular rate and rhythm. No significant peripheral edema. SKIN: Warm and dry to the touch. No rash noted. Sacral decubitus ulcers not vi ewed. MUSCULOSKELETAL: No muscle tenderness is noted. No joint line effusion or arthritis seen. LABORATORY DATA: Patient has a CBC dated 05/10/2017 shows a white blood cell count of 9.9, hemoglobi n 11.7, hematocrit of 36.8, and a platelet count of 273. Differential is within normal limits. Seru m chemistries on 05/11/2017 show sodium of 144, potassium of 3.8, chloride of 104, bicarbonate 36, BU N of 13, creatinine 0.5. MICROBIOLOGIC DATA: Patient has blood cultures dated 05/10/2017 which are pending. ASSESSMENT: Fever upon presentation, with previous assessment that the sacral decubitus ulcers were purulent in appearance and needed debridement. Plan is to continue the patient with coverage and hav e her go for debridement with Dr. Dewitt with flap placement in the next couple of days. We will tripp sition her Augmentin over to IV Unasyn today. This was explained to the patient in detail. She voic ed her agreement with plan. PLAN: 1. Discontinue Augmentin. 2. Start Unasyn 3 g IV q.6 hours. /[id number]/MODL
[2017-05-12 04:36] LABS: HEMATOCRIT 34.5 % (38.0-47.0); HEMOGLOBIN 10.7 g/dL (12.6-16.3); MEAN CELL HEMOGLOBIN 28.2 pg (27.9-34.1); RED BLOOD CELL COUNT 3.79 10^6/uL (4.18-5.33); RED CELL DISTRIBUTION WIDTH 17.6 % (11.5-15.2)
[2017-05-12] MEDS: AMPICILLIN/SULBACTAM 3 GM in NS 100 ML IV SCH ×3 (05:59→17:29)
[2017-05-12] MEDS: CHOLECALCIFEROL VIT D3 1,000 UNITS TAB PO SCH (08:40)
[2017-05-12] MEDS: DILTIAZEM CD 120 MG CAP PO SCH (08:40)
[2017-05-12] MEDS: MULTIVITAMINS 1 EACH TAB PO SCH (08:40)
[2017-05-12] MEDS: DULoxetine 30 MG CAP PO SCH (08:40)
[2017-05-12] MEDS: LISINOPRIL 20 MG TAB PO SCH (08:41)
[2017-05-12] MEDS: ENOXAPARIN 40 MG/0.4 ML SYR SC SCH (08:41)
[2017-05-12] MEDS: SENNOSIDES 1 TAB PO SCH ×2 (08:41→19:52)
[2017-05-12] MEDS: LACTOBACILLUS ACIDOPHILUS PO SCH (10:39)
--- NOTE | 2017-05-12 11:06 | HOSPPROG ---
Hospitalist Progress Note Assessment/Plan: # Fevers - acute - 39.6 on presentation - suspect 07/19 decubitus wound- no fever since 05/10 Blood culture 05/10 NGTD - creatinine normal - cont Augmentin - dc flagyl per ID - cont wound care - Dr. Mensah following # Decubitus ulceration - present on admission - will need ultimate surgical intervention - not prior to LTAC placement - cont wound care and antibiotics - cont rotating - continue PT/OT strengthening for improved ambulation # chronic hypoxic resp failure 07/19 PHTN - CXR (personally reviewed and interpreted) bibasilar atelectasis and query vasc congestion oxygen saturations 94% on 1L - cont supplemental O2 # Failure to Thrive - pt not succeeding in her current SNF - consult dietary - anticipate will need LTAC # HTN- cont home meds # proph - lovenox # diet- regular - need dietary consultation # dispo- > 2MN as presenting with complicate wound which needs care and disposition to a higher level of care I have discussed the case with Dr. Mensah - we will not surgically intervene now - pt to dc to LTAC for ongoing wound care Subjective: feeling well Objective: Vital Signs Temp Pulse Resp BP Pulse Ox 36.9 C 61 18 151/80 H 94 05/12/17 07:48 05/12/17 08:40 05/12/17 07:48 05/12/17 08:41 05/12/17 07:48 Laboratory Results 05/12/17 04:17 05/11/17 04:35 05/11/17 05/12/17 05/13/17 05:59 05:59 05:59 Intake Total 975 800 Output Total 855 1000 Balance 120 -200 - Physical Exam Constitutional: no apparent distress Eyes: anicteric sclera Ears, Nose, Mouth, Throat: moist mucous membranes Cardiovascular: regular rate and rhythym Respiratory: no respiratory distress Gastrointestinal: normoactive bowel sounds, soft, non-tender abdomen Genitourinary: no bladder fullness Skin: warm, normal color Musculoskeletal: full muscle strength Neurologic: AAOx3 Psychiatric: interacting appropriately Lymph, Heme, Immunologic: no cervical LAD ICD10 Worksheet Patient Problems: Problems Problem Status Onset Decubitus ulcer Acute Fracture of right hip Acute Intertrochanteric fracture of right hip Acute
--- NOTE | 2017-05-12 17:28 | PCMIDPN ---
Assessment/Plan: Assessment: Infected sacral decubitus ulcers. Covered with Unasyn monotherapy. No more fever since admission. Plan to continue Unasyn until debridement and flap coverage in the next couple of days. Patient is clinically doing well. Plan: 1. Continue IV Unasyn. 2. Follow appearance of wounds. 3. Await operative debridement. 05/12/17 19:47 Subjective: Patient is in good spirits. She denies any fevers or chills. No rash or itching. Objective: Unasyn # 1 Vital Signs Temp Pulse Resp BP Pulse Ox 37.2 C 63 18 152/81 H 93 05/12/17 15:45 05/12/17 15:45 05/12/17 15:45 05/12/17 15:45 05/12/17 15:45 Laboratory Results 05/12/17 04:17 05/11/17 04:35 05/11/17 05/12/17 05/13/17 05:59 05:59 05:59 Intake Total 975 800 Output Total 855 1000 900 Balance 120 -200 -900 - Physical Exam General Appearance: WD/WN, alert, no apparent distress, non-toxic Respiratory: lungs clear, normal breath sounds, No respiratory distress Cardiac/Chest: regular rate, rhythm, No tachycardia Neuro/Psych: alert, normal mood/affect, oriented x 3 ICD10 Worksheet Patient Problems: Problems Problem Status Onset Decubitus ulcer Acute Fracture of right hip Acute Intertrochanteric fracture of right hip Acute
[2017-05-13] MEDS: AMPICILLIN/SULBACTAM 3 GM in NS 100 ML IV SCH ×4 (00:28→18:59)
[2017-05-13] MEDS: MULTIVITAMINS 1 EACH TAB PO SCH (08:00)
[2017-05-13] MEDS: CHOLECALCIFEROL VIT D3 1,000 UNITS TAB PO SCH (08:00)
[2017-05-13] MEDS: DULoxetine 30 MG CAP PO SCH (08:00)
[2017-05-13] MEDS: LISINOPRIL 20 MG TAB PO SCH (08:00)
[2017-05-13] MEDS: LACTOBACILLUS ACIDOPHILUS PO SCH (08:01)
[2017-05-13] MEDS: ENOXAPARIN 40 MG/0.4 ML SYR SC SCH (08:01)
[2017-05-13] MEDS: DILTIAZEM CD 120 MG CAP PO SCH (08:01)
--- NOTE | 2017-05-13 08:28 | WOCRNPDOC ---
WOCRN Advanced Assessment Note - Skin Integrity Problem, Advanced Assess Coccyx Pressure Injury Dressing Type: Black Vac Foam, Wound Vac Dressing Description: Clean/Dry, Intact Integumentary Issue Intervention: Dressing Changed Wound Bed Constitution: Granulation Tissue, Undermining (7-8 oclock when lying on right side 5 cm), Hypergranulation Site Measurement - Head-to-Toe Length X Width X Depth (cm): 6.5x5x1 Pressure Injury Stage: Stage 4 Pressure Injury Present on Admit: Yes Skin Integrity Problem Comment: Vac removed and moist to dry applied with ted. Patient may D/C to [facility] today. Discussed care with wound RN at [facility] who agreed that a moist to dry dressing is appropriate. Moist to dry applied.
[2017-05-13] MEDS: SENNOSIDES 1 TAB PO SCH ×2 (08:50→21:41)
--- NOTE | 2017-05-13 08:51 | PDIAF ---
- Diagnosis Diagnosis: decubitus wound Code Status: Full Code - Medication Management Discharge Medications: Medications to Continue on Transfer Diltiazem Cd [Cardizem ER 120 MG (*)] 120 mg PO DAILY 03/23/12 [Last Taken 05/10] Lisinopril [Zestril 20 mg (*)] 40 mg PO DAILY 03/23/12 [Last Taken 05/10/17] Cholecalciferol Vit D3 [Vitamin D3 2000 units] 2,000 units PO DAILY 03/13/13 [ Last Taken 05/10/17] DULoxetine [Cymbalta 60 MG (*)] 90 mg PO DAILY 03/06/17 [Last Taken 05/10/17] Amoxicillin/Clavulanate Pot [Augmentin 875 MG TAB (*)] 1 tab PO BID 05/10/17 [ Last Taken 05/10/17] Cyanocobalamin [Vitamin B12 1000MCG/ML (*)] 1,000 mcg IM Q30D 05/10/17 [Last Taken Unknown] Furosemide [Lasix 20 MG (*)] 20 mg PO DAILY 05/10/17 [Last Taken 05/10/17] Ibuprofen 400 mg PO Q4H PRN 05/10/17 [Last Taken 05/10/17] Lactobacillus Acidophilus [Acidophilus Lactobacilli] 1 each PO DAILY 05/10/17 [ Last Taken 05/10/17] Multivitamins [Multivitamin (*)] 1 each PO DAILY 05/10/17 [Last Taken 05/10/17] Sennosides [Senna Lax] 2 tab PO BID 05/10/17 [Last Taken 05/10/17] Discharge Medications: Refer to the Discharge Home Medication list for PRN reason. - Orders Services needed: Registered Nurse, Physical Therapy, Occupational Therapy Isolation Type: None Diet Recommendation: no restrictions on diet Diet Texture: Regular Texture Diet - Follow Up Care Current Providers and Referrals: Sherice Mensah MD [Primary Care Provider] - As per Instructions
[2017-05-13] MEDS: IBUPROFEN 200 MG TAB PO PRN (14:30)
--- NOTE | 2017-05-13 14:38 | ASMTCMCOM ---
CM Note CM Note Notes: CM spoke w/ Dr. Daniel and Shorty RN regarding d/c POC. CM sent updates to [facility]. CM spoke w/ Shane and he will be out tomorrow evaluate pt. CM to follow. Plan: [facility] Date Signed: 05/13/2017 02:38 PM Electronically Signed By:VERNON Foley
--- NOTE | 2017-05-13 14:48 | HOSPPROG ---
Hospitalist Progress Note Assessment/Plan: # Fevers - acute - 39.6 on presentation - suspect 07/19 decubitus wound- no fever since 05/10 Blood culture 05/10 NGTD - creatinine normal - cont Unasyn - can transition to Augmentin until debridement/flap - dc flagyl per ID - cont wound care - Dr. Mensah peripherally # Decubitus ulceration - present on admission - will need ultimate surgical intervention - not prior to LTAC placement - WBC 9->7 - cont wound care and antibiotics - cont rotating - continue PT/OT strengthening for improved ambulation # chronic hypoxic resp failure 07/19 PHTN - CXR (personally reviewed and interpreted) bibasilar atelectasis and query vasc congestion oxygen saturations 91% on 1L - cont supplemental O2 # Failure to Thrive - pt not succeeding in her current SNF - consult dietary - anticipate will need LTAC # HTN- cont home meds # proph - lovenox # diet- regular - need dietary consultation # dispo- > 2MN as presenting with complicate wound which needs care and disposition to a higher level of care I have discussed the case with CM - LTAC coming to eval patient tomorrow for dispo Subjective: tolerating PO Objective: Vital Signs Temp Pulse Resp BP Pulse Ox 37.1 C 63 16 166/86 H 91 L 05/13/17 07:59 05/13/17 08:01 05/13/17 07:59 05/13/17 08:01 05/13/17 07:59 Laboratory Results 05/12/17 04:17 05/11/17 04:35 05/12/17 05/13/17 05/14/17 05:59 05:59 05:59 Intake Total 800 500 Output Total 1000 1950 Balance -200 -1450 - Physical Exam Constitutional: appears nourished Eyes: anicteric sclera Ears, Nose, Mouth, Throat: moist mucous membranes Cardiovascular: regular rate and rhythym Respiratory: no respiratory distress, No expiratory wheeze Gastrointestinal: normoactive bowel sounds Genitourinary: no bladder fullness Skin: warm Musculoskeletal: No asymmetric calves Neurologic: AAOx3 Psychiatric: interacting appropriately, not anxious Lymph, Heme, Immunologic: no cervical LAD ICD10 Worksheet Patient Problems: Problems Problem Status Onset Decubitus ulcer Acute Fracture of right hip Acute Intertrochanteric fracture of right hip Acute
[2017-05-13] MEDS ORDERED: SODIUM HYPOCHLORITE (DAKINS 1/4 STR) 120 ML BTL IRR PRN (16:47)
[2017-05-14] MEDS: AMPICILLIN/SULBACTAM 3 GM in NS 100 ML IV SCH ×5 (00:04→23:44)
[2017-05-14] MEDS: LACTOBACILLUS ACIDOPHILUS PO SCH (10:06)
[2017-05-14] MEDS: DULoxetine 30 MG CAP PO SCH (10:39)
[2017-05-14] MEDS: CHOLECALCIFEROL VIT D3 1,000 UNITS TAB PO SCH (10:40)
[2017-05-14] MEDS: SENNOSIDES 1 TAB PO SCH ×2 (10:40→21:47)
[2017-05-14] MEDS: LISINOPRIL 20 MG TAB PO SCH (10:40)
[2017-05-14] MEDS: MULTIVITAMINS 1 EACH TAB PO SCH (10:41)
[2017-05-14] MEDS: DILTIAZEM CD 120 MG CAP PO SCH (10:41)
[2017-05-14] MEDS: ENOXAPARIN 40 MG/0.4 ML SYR SC SCH (10:45)
[2017-05-14] MEDS: IBUPROFEN 200 MG TAB PO PRN (10:49)
--- NOTE | 2017-05-14 12:34 | HOSPPROG ---
Hospitalist Progress Note Assessment/Plan: DIAGNOSES: -complex decubitus ulcer with wound infection and fever, all Present on Admission; will need eventual wound debridement -impaired mobility, deconditioning -anemia, normocytic, new since February when hemoglobin was 13, uncertain cause -recent hip surgery -chronic hypoxemic respiratory failure, stable at this time -failure to thrive PLANS: Continue physical occupational therapy Continue wound care Will begin workup for cause of anemia and had recheck hemoglobin since that has not been seen for a few days; I have ordered CBC, iron studies, chemistry; if iron deficient will check stool for heme and she may need GI workup She has been accepted to [facility] but bed not yet available SUBJECTIVE: Feels well overall with little pain Still weak and mobility limited Hip is not hurting her at all, some pain at wound OBJECTIVE Vitals reviewed: Stable without fever Exam: alert oriented skin warm dry color ok resps not labored lungs clear BSs heart regular abd soft nondistended nontender, bowel sounds present limbs warm, no edema iv site ok Objective: Vital Signs Temp Pulse Resp BP Pulse Ox 36.8 C 60 16 153/80 H 92 05/14/17 07:34 05/14/17 10:41 05/14/17 07:34 05/14/17 10:41 05/14/17 07:34 Laboratory Results 05/12/17 04:17 05/11/17 04:35 05/13/17 05/14/17 05/15/17 06:59 06:59 06:59 Intake Total 500 705 Output Total 4191 7560 Balance -2187 -145 ICD10 Worksheet Patient Problems: Problems Problem Status Onset Decubitus ulcer Acute Fracture of right hip Acute Intertrochanteric fracture of right hip Acute
[2017-05-14 14:38] LABS: % IMMATURE GRANULYOCYTES 0.5 % (0.0-1.1); ABSOLUTE IMMATURE GRANULOCYTES 0.04 10^3/uL (0.00-0.10); ADD DIFF? NO; ADD MORPH? NO; ADD SCAN? NO; ATYPICAL LYMPHOCYTE FLAG 0 (0-99); FRAGMENT RBC FLAG 0 (0-99); HEMATOCRIT 39.2 % (38.0-47.0); HEMOGLOBIN 12.4 g/dL (12.6-16.3); LEFT SHIFT FLG 0 (0-99); LIPEMIA HEMOLYSIS FLAG 80 (0-99); MEAN CELL HEMOGLOBIN 28.6 pg (27.9-34.1); MEAN CELL HEMOGLOBIN CONCENTR. 31.6 g/dL (32.4-36.7); MEAN CELL VOLUME 90.3 fL (81.5-99.8); MEAN PLATELET VOLUME 9.3 fL (8.7-11.7); PLATELET CLUMPS FLAG 0 (0-99); PLATELET COUNT 232 10^3/uL (150-400); RED BLOOD CELL COUNT 4.34 10^6/uL (4.18-5.33); RED CELL DISTRIBUTION WIDTH 17.4 % (11.5-15.2)
--- NOTE | 2017-05-14 14:57 | ASMTCMCOM ---
CM Note CM Note Notes: Shane from [facility] came to assess pt. [facility] has accepted pt but will not have a bed for a couple more days. CM met w/ pt for dispo planning. CM explained to pt the bed availablity at [facility]. CM provided pt a list of other LTAC. Pt reports that she will speak w/ her about this. CM will check in tomorrow. CM updated Dr. Garcia regarding d/c POC. Plan: LTAC Date Signed: 05/14/2017 02:56 PM Electronically Signed By:VERNON Foley
[2017-05-14] MEDS ORDERED: CALCIUM CARBONATE 500 MG CHEWABLE TAB PO PRN (15:42)
[2017-05-14] MEDS ORDERED: BISACODYL 10 MG SUPP PR PRN (17:42)
[2017-05-14] MEDS ORDERED: POLYETHYLENE GLYCOL 3350 17 GM PKT PO PRN (17:42)
[2017-05-14] MEDS ORDERED: MAGNESIUM HYDROXIDE 30 ML UDCUP PO PRN (17:42)
[2017-05-14] MEDS ORDERED: LACTULOSE 20 GM/30 ML UDCUP PO PRN (17:42)
[2017-05-14] MEDS: SENNOSIDES/DOCUSATE SODIUM TAB PO SCH (21:19)
[2017-05-14] MEDS: FAMOTIDINE 20 MG TAB PO SCH (21:19)
[2017-05-15] MEDS: AMPICILLIN/SULBACTAM 3 GM in NS 100 ML IV SCH ×3 (05:22→18:14)
[2017-05-15 05:29] LABS: % IMMATURE GRANULYOCYTES 0.4 % (0.0-1.1); ABSOLUTE IMMATURE GRANULOCYTES 0.03 10^3/uL (0.00-0.10); ADD DIFF? NO; ADD MORPH? NO; ADD SCAN? NO; ATYPICAL LYMPHOCYTE FLAG 10 (0-99); FRAGMENT RBC FLAG 0 (0-99); HEMATOCRIT 34.9 % (38.0-47.0); LEFT SHIFT FLG 0 (0-99); LIPEMIA HEMOLYSIS FLAG 80 (0-99); MEAN CELL HEMOGLOBIN 28.4 pg (27.9-34.1); MEAN CELL HEMOGLOBIN CONCENTR. 31.5 g/dL (32.4-36.7); MEAN CELL VOLUME 89.9 fL (81.5-99.8); MEAN PLATELET VOLUME 9.3 fL (8.7-11.7); PLATELET CLUMPS FLAG 0 (0-99); PLATELET COUNT 212 10^3/uL (150-400); RED BLOOD CELL COUNT 3.88 10^6/uL (4.18-5.33); RED CELL DISTRIBUTION WIDTH 17.2 % (11.5-15.2)
[2017-05-15 06:14] LABS: ALANINE AMINOTRANSFERASE 27 IU/L (9-52); ALBUMIN 2.7 g/dL (3.5-5.0); ALKALINE PHOSPHATASE 54 IU/L (38-126); ANION GAP 7 mEq/L (8-16); ASPARTATE AMINOTRANSFERASE 17 IU/L (14-46); BILIRUBIN,TOTAL 0.3 mg/dL (0.1-1.4); BILIRUBIN-CONJUGATED 0.2 mg/dL (0.0-0.5); BILIRUBIN-UNCONJUGATED 0.1 mg/dL (0.0-1.1); CALCIUM 8.9 mg/dL (8.5-10.4); CARBON DIOXIDE 36 mEq/l (22-31); CHLORIDE 101 mEq/L (97-110); CREATININE 0.6 mg/dL (0.6-1.0); GLOMERULAR FILTRATION RATE > 60; GLUCOSE 101 mg/dL (70-100); SODIUM 144 mEq/L (134-144); TOTAL PROTEIN 5.7 g/dL (6.3-8.2)
[2017-05-15 06:23] LABS: % SATURATION 17 % (20-55); TOTAL IRON BINDING CAPACITY 192 ug/dL (260-490)
[2017-05-15 06:50] LABS: FERRITIN - BCH 46.1 ng/mL (6.2-264.0)
[2017-05-15] MEDS: LISINOPRIL 20 MG TAB PO SCH (10:04)
[2017-05-15] MEDS: DULoxetine 30 MG CAP PO SCH (10:04)
[2017-05-15] MEDS: SENNOSIDES/DOCUSATE SODIUM TAB PO SCH ×2 (10:04→22:07)
[2017-05-15] MEDS: CHOLECALCIFEROL VIT D3 1,000 UNITS TAB PO SCH (10:04)
[2017-05-15] MEDS: MULTIVITAMINS 1 EACH TAB PO SCH (10:04)
[2017-05-15] MEDS: DILTIAZEM CD 120 MG CAP PO SCH (10:05)
[2017-05-15] MEDS: FAMOTIDINE 20 MG TAB PO SCH ×2 (10:05→22:07)
[2017-05-15] MEDS: ENOXAPARIN 40 MG/0.4 ML SYR SC SCH (10:08)
[2017-05-15] MEDS: SENNOSIDES 1 TAB PO SCH ×2 (10:10→22:07)
[2017-05-15] MEDS: LACTOBACILLUS ACIDOPHILUS PO SCH (10:10)
--- NOTE | 2017-05-15 12:02 | ASMTCMCOM ---
CM Note CM Note Notes: CM spoke w/ Dr. Mensah's PA Santa and was infromed that Dr. Mensah would like pt to go to [facility] for LTAC. CM updated pt about this. CM communicated this w/ Dr. Garcia. CM spoke w/ Shane at [facility] was informed that they will most likely have a bed available by the end of this week. CM to follow. Plan: LTAC; [facility] Date Signed: 05/15/2017 12:02 PM Electronically Signed By:VERNON Foley
[2017-05-15] MEDS: IBUPROFEN 200 MG TAB PO PRN (13:10)
--- NOTE | 2017-05-15 17:36 | HOSPPROG ---
Hospitalist Progress Note Assessment/Plan: DIAGNOSES: -complex decubitus ulcer with wound infection and fever, all Present on Admission; will need eventual wound debridement -impaired mobility, deconditioning -anemia, normocytic, new since February when hemoglobin was 13, there is some evidence for at least mild iron deficiency -recent hip surgery -chronic hypoxemic respiratory failure, stable at this time -failure to thrive PLANS: Continue physical occupational therapy Continue wound care Will start iron replacement therapy At some point in the outpatient setting a GI assessment for a source of blood loss should be undertaken She has been accepted to [facility] but bed not yet available Sounds like will not be able to arrange transfer to [facility] for another couple days but will continue working with casework specialist on this SUBJECTIVE: Feels well overall with little pain Still weak and mobility limited Hip is not hurting her at all, some pain at wound OBJECTIVE Vitals reviewed: Stable without fever Exam: alert oriented skin warm dry color ok resps not labored lungs clear BSs heart regular abd soft nondistended nontender, bowel sounds present limbs warm, no edema iv site ok Objective: Vital Signs Temp Pulse Resp BP Pulse Ox 37 C 72 16 123/74 H 92 05/15/17 15:49 05/15/17 15:49 05/15/17 15:49 05/15/17 15:49 05/15/17 15:49 Laboratory Results 05/15/17 05:05 05/15/17 05:05 05/14/17 05/15/17 05/16/17 06:59 06:59 06:59 Intake Total 705 300 Output Total 1350 1200 Balance -645 -900 ICD10 Worksheet Patient Problems: Problems Problem Status Onset Decubitus ulcer Acute Fracture of right hip Acute Intertrochanteric fracture of right hip Acute
[2017-05-16] MEDS: AMPICILLIN/SULBACTAM 3 GM in NS 100 ML IV SCH ×4 (01:00→17:43)
[2017-05-16] MEDS: DILTIAZEM CD 120 MG CAP PO SCH (09:53)
[2017-05-16] MEDS: FERRO-SEQUELS 65 MG TAB.ER PO SCH (09:53)
[2017-05-16] MEDS: SENNOSIDES 1 TAB PO SCH ×2 (09:53→20:22)
[2017-05-16] MEDS: DULoxetine 30 MG CAP PO SCH (09:53)
[2017-05-16] MEDS: CHOLECALCIFEROL VIT D3 1,000 UNITS TAB PO SCH (09:53)
[2017-05-16] MEDS: FAMOTIDINE 20 MG TAB PO SCH ×2 (09:54→20:24)
[2017-05-16] MEDS: LISINOPRIL 20 MG TAB PO SCH (09:54)
[2017-05-16] MEDS: MULTIVITAMINS 1 EACH TAB PO SCH (09:55)
[2017-05-16] MEDS: ENOXAPARIN 40 MG/0.4 ML SYR SC SCH (09:55)
[2017-05-16] MEDS: SENNOSIDES/DOCUSATE SODIUM TAB PO SCH ×2 (09:55→20:23)
[2017-05-16] MEDS: LACTOBACILLUS ACIDOPHILUS PO SCH (09:57)
[2017-05-16] MEDS: IBUPROFEN 200 MG TAB PO PRN (12:41)
[2017-05-17] MEDS: AMPICILLIN/SULBACTAM 3 GM in NS 100 ML IV SCH ×4 (00:47→21:02)
[2017-05-17] MEDS: MULTIVITAMINS 1 EACH TAB PO SCH (08:45)
[2017-05-17] MEDS: CHOLECALCIFEROL VIT D3 1,000 UNITS TAB PO SCH (08:45)
[2017-05-17] MEDS: DILTIAZEM CD 120 MG CAP PO SCH (08:45)
[2017-05-17] MEDS: FERRO-SEQUELS 65 MG TAB.ER PO SCH (08:45)
[2017-05-17] MEDS: DULoxetine 30 MG CAP PO SCH (08:45)
[2017-05-17] MEDS: FAMOTIDINE 20 MG TAB PO SCH ×2 (08:45→21:04)
[2017-05-17] MEDS: LISINOPRIL 20 MG TAB PO SCH (08:45)
[2017-05-17] MEDS: SENNOSIDES 1 TAB PO SCH ×2 (08:46→21:08)
[2017-05-17] MEDS: SENNOSIDES/DOCUSATE SODIUM TAB PO SCH ×2 (08:46→21:02)
[2017-05-17] MEDS: ENOXAPARIN 40 MG/0.4 ML SYR SC SCH (08:47)
[2017-05-17] MEDS: LACTOBACILLUS ACIDOPHILUS PO SCH (08:48)
--- NOTE | 2017-05-17 14:17 | ASMTCMCOM ---
CM Note CM Note Notes: Spoke w/Shane at [facility] today, still no bed available for pt, maybe tomorrow. Pt and notified, also discussed transportation to facility, pt's called medicare and they told him that if she was going to a facility for a higher level of care, then transportation should be covered. CM explained in detail that [facility] could not guarantee transport would be covered, verbalized understanding. [facility] network control operators supervisor this weekend- Laurita [phone] DC Plan: LTAC, [facility] to set up stretcher transport Date Signed: 05/17/2017 02:16 PM Electronically Signed By:Yu Fong RN
--- NOTE | 2017-05-17 15:51 | HOSPPROG ---
Hospitalist Progress Note Assessment/Plan: DIAGNOSES: -complex decubitus ulcer with wound infection and fever, all Present on Admission; will need eventual wound debridement -impaired mobility, deconditioning -anemia, normocytic but with iron deficiency, new since February when hemoglobin was 13; she does have a prior history of iron deficiency with negative GI workup -recent hip surgery doing well from that -chronic hypoxemic respiratory failure, stable at this time -failure to thrive I reviewed her iron deficiency situation with her in detail. She said that she has followed with Dr. Enrique for this and around 2-3 years ago had a acute GI workup including upper and lower endoscopies and capsule endoscopy all without finding a source of blood loss. She had been getting some iron infusions but has not had any iron recently. Iron replacement is indicated now PLANS: Continue physical occupational therapy Continue wound care Will start iron replacement therapy She has been accepted to [facility] but bed not yet available , anticipate possible bed available tomorrow but waiting for final were SUBJECTIVE: Feels well overall with little pain Still weak and mobility limited Hip is not hurting her at all, some pain at wound No fever symptoms, eating well, no respiratory symptoms OBJECTIVE Vitals reviewed: Stable without fever Exam: alert oriented skin warm dry color ok resps not labored lungs clear BSs heart regular abd soft nondistended nontender, bowel sounds present limbs warm, no edema iv site ok Objective: Vital Signs Temp Pulse Resp BP Pulse Ox 36.8 C 65 12 129/61 H 86 L 05/17/17 15:05 05/17/17 15:05 05/17/17 15:05 05/17/17 15:05 05/17/17 15:05 Laboratory Results 05/15/17 05:05 05/15/17 05:05 05/16/17 05/17/17 05/18/17 06:59 06:59 06:59 Intake Total 575 320 Output Total 1100 650 Balance -525 -330 ICD10 Worksheet Patient Problems: Problems Problem Status Onset Decubitus ulcer Acute Fracture of right hip Acute Intertrochanteric fracture of right hip Acute
[2017-05-18] MEDS: AMPICILLIN/SULBACTAM 3 GM in NS 100 ML IV SCH ×3 (01:44→13:01)
[2017-05-18] MEDS: ENOXAPARIN 40 MG/0.4 ML SYR SC SCH (09:46)
[2017-05-18] MEDS: MULTIVITAMINS 1 EACH TAB PO SCH (09:47)
[2017-05-18] MEDS: DULoxetine 30 MG CAP PO SCH (09:47)
[2017-05-18] MEDS: FAMOTIDINE 20 MG TAB PO SCH ×2 (09:47→21:01)
[2017-05-18] MEDS: FERRO-SEQUELS 65 MG TAB.ER PO SCH (09:47)
[2017-05-18] MEDS: LISINOPRIL 20 MG TAB PO SCH (09:47)
[2017-05-18] MEDS: CHOLECALCIFEROL VIT D3 1,000 UNITS TAB PO SCH (09:47)
[2017-05-18] MEDS: DILTIAZEM CD 120 MG CAP PO SCH (09:47)
[2017-05-18] MEDS: LACTOBACILLUS ACIDOPHILUS PO SCH (09:49)
[2017-05-18] MEDS: SENNOSIDES 1 TAB PO SCH ×2 (09:50→21:47)
[2017-05-18] MEDS: SENNOSIDES/DOCUSATE SODIUM TAB PO SCH ×2 (09:50→21:47)
--- NOTE | 2017-05-18 12:34 | HOSPPROG ---
Hospitalist Progress Note Assessment/Plan: DIAGNOSES: -complex decubitus ulcer with wound infection and fever, all Present on Admission; will need eventual wound debridement -impaired mobility, deconditioning -anemia, normocytic but with iron deficiency, new since February when hemoglobin was 13; she does have a prior history of iron deficiency with negative GI workup -recent hip surgery doing well from that -chronic hypoxemic respiratory failure, stable at this time -failure to thrive I reviewed her iron deficiency situation with her in detail. She said that she has followed with Dr. Enrique for this and around 2-3 years ago had a acute GI workup including upper and lower endoscopies and capsule endoscopy all without finding a source of blood loss. She had been getting some iron infusions but has not had any iron recently. Iron replacement is indicated now PLANS: Continue physical occupational therapy Continue wound care iron replacement therapy She has been accepted to [facility] but bed not yet available , anticipate possible bed available tomorrow but waiting for final word from case management SUBJECTIVE: Feels well overall with little pain Feels a bit stronger today but remains overall weak Hip is not hurting her at all, wound pain has resolved as well No fever symptoms, eating well, no respiratory symptoms OBJECTIVE Vitals reviewed: Mild hypertension, otherwise stable without fever Exam: alert oriented skin warm dry color ok resps not labored lungs clear BSs heart regular abd soft nondistended nontender, bowel sounds present limbs warm, no edema iv site ok Objective: Vital Signs Temp Pulse Resp BP Pulse Ox 36.9 C 50 L 18 156/92 H 96 05/18/17 07:47 05/18/17 07:47 05/18/17 07:47 05/18/17 07:47 05/18/17 07:47 Laboratory Results 05/15/17 05:05 05/15/17 05:05 05/17/17 05/18/17 05/19/17 06:59 06:59 06:59 Intake Total 320 450 Output Total 650 650 Balance -330 -200 ICD10 Worksheet Patient Problems: Problems Problem Status Onset Decubitus ulcer Acute Fracture of right hip Acute Intertrochanteric fracture of right hip Acute
--- NOTE | 2017-05-18 14:49 | PCMIDPN ---
Assessment/Plan: Assessment/Plan: * Chronic sacral decubitus ulcer with history of Clostridium/Proteus bacteremia in March due to wound infection: Decubitus ulcer without clinical findings of active wound infection currently. Has received 7 days of Unasyn given fever at time of presentation. Will discontinue antibiotics with plans for continued wound care and possible flap at LTAC. 05/18/17 14:45 Subjective: Patient confused about surgical plans. Objective: Vital Signs Temp Pulse Resp BP Pulse Ox 36.9 C 50 L 18 156/92 H 96 05/18/17 07:47 05/18/17 07:47 05/18/17 07:47 05/18/17 07:47 05/18/17 07:47 Laboratory Results 05/15/17 05:05 05/15/17 05:05 05/17/17 05/18/17 05/19/17 05:59 05:59 05:59 Intake Total 495 450 Output Total 950 650 Balance -455 -200 Unasyn #7 Blood cultures 05/10/17 no growth Blood cultures in March at [facility] with growth of Proteus/Clostridium - Physical Exam General Appearance: alert, no apparent distress, non-toxic Extremities: pedal edema Skin: decubitus (sacral decubitus with clean base and granulation throughout; no skin or tissue necrosis; no exposed or palpable bone) ICD10 Worksheet Patient Problems: Problems Problem Status Onset Decubitus ulcer Acute Fracture of right hip Acute Intertrochanteric fracture of right hip Acute
[2017-05-18] MEDS: IBUPROFEN 200 MG TAB PO PRN (16:20)
[2017-05-19] MEDS: FAMOTIDINE 20 MG TAB PO SCH ×2 (08:21→20:59)
[2017-05-19] MEDS: MULTIVITAMINS 1 EACH TAB PO SCH (08:21)
[2017-05-19] MEDS: DULoxetine 30 MG CAP PO SCH (08:22)
[2017-05-19] MEDS: LISINOPRIL 20 MG TAB PO SCH (08:22)
[2017-05-19] MEDS: FERRO-SEQUELS 65 MG TAB.ER PO SCH (08:23)
[2017-05-19] MEDS: CHOLECALCIFEROL VIT D3 1,000 UNITS TAB PO SCH (08:23)
[2017-05-19] MEDS: DILTIAZEM CD 120 MG CAP PO SCH (08:23)
[2017-05-19] MEDS: ENOXAPARIN 40 MG/0.4 ML SYR SC SCH (08:26)
[2017-05-19] MEDS: SENNOSIDES 1 TAB PO SCH ×2 (08:29→22:08)
[2017-05-19] MEDS: SENNOSIDES/DOCUSATE SODIUM TAB PO SCH ×2 (08:29→20:59)
[2017-05-19] MEDS: LACTOBACILLUS ACIDOPHILUS PO SCH (08:29)
--- NOTE | 2017-05-19 12:21 | ASMTCMCOM ---
CM Note CM Note Notes: Spoke with Laurita at [facility] - she reports that they do not have a bed available today but are anticipating some discharges tomorrow and will follow up with us in the AM. Dr Moore wanted me to confirm that they were planning on doing patient's flap when she is there - Laurita explained that they are planning to do an "advanced tissue closure," which is performed at the bedside without the use of general anesthesia. When patient is discharged, Case Management will need to document on the PCS form (for transport) that it is imperative for patient to transfer by ambulance due to the location/severity of her wounds. CM will follow. Date Signed: 05/19/2017 12:20 PM Electronically Signed By:Sarah Townsend RN
--- NOTE | 2017-05-19 16:35 | HOSPPROG ---
Hospitalist Progress Note Assessment/Plan: Assessment: 76-year-old female presenting with decubitus ulcer acute wound infection Plan: 1. Decubitus ulcer. Present on admission, located in the perineal area, at risk for dehiscence if patient experiences urinary incontinence, requires indwelling Krause catheter -will attempt to determine when last time the Krause catheter was changed, requires sterile changed approximately every 30 days -status post 7 days of Unasyn, per Infectious Disease, antibiotics have been discontinued -patient is awaiting safe transition to lower level of care at [facility], where she can receive advanced tissue closure which is a bedside procedure, [facility] does not do flaps -if bed is not available tomorrow, I have counseled the patient and her that I work closely with case management to ensure that this has been escalated appropriately both within our facility and at [facility] 2. Normocytic anemia. Chronic but with iron deficient component, patient has received IV iron therapy as an outpatient -will continue oral iron therapy 3. Osteoarthritis. Status post recent hip surgery, working with physical therapy 4. Chronic hypoxic respiratory failure. Continue on supplemental oxygen 5. Hypertension. Chronic, continue SAMANTHA inhibitor and calcium channel nneka Diet. Regular Prophylaxis. High risk, Lovenox 40 Code. Full Disposition. Anticipated discharge is dependent on safe transfer to lower level of care, dependent on available bed at [facility]. Subjective: Patient reports that pain management is adequate, she is eagerly awaiting transfer Objective: Vital Signs Temp Pulse Resp BP Pulse Ox 36.7 C 68 18 178/95 H 95 05/19/17 15:12 05/19/17 15:12 05/19/17 15:12 05/19/17 15:12 05/19/17 15:12 Laboratory Results 05/15/17 05:05 05/15/17 05:05 05/18/17 05/19/17 05/20/17 05:59 05:59 05:59 Intake Total 450 500 Output Total 650 2000 Balance -200 -1500 - Time Spent With Patient Time Spent with Patient: greater than 35 minutes Time Spent with Patient: Greater than 35 minutes spent on this patients care, greater than 50% of time spent counseling, educating, and coordinating care regarding the above mentioned plan. - Physical Exam Constitutional: no apparent distress, appears nourished, not in pain Cardiovascular: regular rate and rhythym, no murmur, rub, or gallop Respiratory: no respiratory distress, no rales or rhonchi, clear to auscultation Gastrointestinal: normoactive bowel sounds, soft, non-tender abdomen, no palpable masses Neurologic: AAOx3 Psychiatric: interacting appropriately, not anxious, not encephalopathic, thought process linear ICD10 Worksheet Patient Problems: Problems Problem Status Onset Decubitus ulcer Acute Fracture of right hip Acute Intertrochanteric fracture of right hip Acute
[2017-05-20 03:52] VITALS: RESP 16
[2017-05-20 05:17] LABS: % IMMATURE GRANULYOCYTES 0.3 % (0.0-1.1); ABSOLUTE IMMATURE GRANULOCYTES 0.02 10^3/uL (0.00-0.10); ADD DIFF? NO; ADD MORPH? NO; ADD SCAN? NO; ATYPICAL LYMPHOCYTE FLAG 0 (0-99); FRAGMENT RBC FLAG 20 (0-99); HEMATOCRIT 33.1 % (38.0-47.0); HEMOGLOBIN 10.4 g/dL (12.6-16.3); LEFT SHIFT FLG 0 (0-99); LIPEMIA HEMOLYSIS FLAG 80 (0-99); MEAN CELL HEMOGLOBIN 28.2 pg (27.9-34.1); MEAN CELL HEMOGLOBIN CONCENTR. 31.4 g/dL (32.4-36.7); MEAN CELL VOLUME 89.7 fL (81.5-99.8); MEAN PLATELET VOLUME 9.9 fL (8.7-11.7); PLATELET CLUMPS FLAG 0 (0-99); PLATELET COUNT 208 10^3/uL (150-400); RED BLOOD CELL COUNT 3.69 10^6/uL (4.18-5.33); RED CELL DISTRIBUTION WIDTH 17.4 % (11.5-15.2)
[2017-05-20 05:38] LABS: ANION GAP 7 mEq/L (8-16); CARBON DIOXIDE 31 mEq/l (22-31); CHLORIDE 105 mEq/L (97-110); CREATININE 0.6 mg/dL (0.6-1.0); GLOMERULAR FILTRATION RATE > 60; GLUCOSE 100 mg/dL (70-100); POTASSIUM 4.1 mEq/L (3.5-5.2); SODIUM 143 mEq/L (134-144)
[2017-05-20] MEDS: ENOXAPARIN 40 MG/0.4 ML SYR SC SCH (10:20)
[2017-05-20] MEDS: FAMOTIDINE 20 MG TAB PO SCH (10:21)
[2017-05-20] MEDS: LISINOPRIL 20 MG TAB PO SCH (10:21)
[2017-05-20] MEDS: DULoxetine 30 MG CAP PO SCH (10:21)
[2017-05-20] MEDS: FERRO-SEQUELS 65 MG TAB.ER PO SCH (10:21)
[2017-05-20] MEDS: CHOLECALCIFEROL VIT D3 1,000 UNITS TAB PO SCH (10:21)
[2017-05-20] MEDS: MULTIVITAMINS 1 EACH TAB PO SCH (10:22)
[2017-05-20] MEDS: DILTIAZEM CD 120 MG CAP PO SCH (10:22)
[2017-05-20] MEDS: LACTOBACILLUS ACIDOPHILUS PO SCH (10:23)
[2017-05-20] MEDS: SENNOSIDES/DOCUSATE SODIUM TAB PO SCH (10:23)
[2017-05-20] MEDS: SENNOSIDES 1 TAB PO SCH (10:24)
[2017-05-20] MEDS ORDERED: SENNOSIDES/DOCUSATE SODIUM TAB PO ONE (15:01)
--- NOTE | 2017-05-20 15:19 | PDDCSUM ---
Discharge Summary Discharge Summary: DISCHARGE SUMMARY FOLLOW-UP ITEMS: Outpatient wound reassessment with Dr. Sherice Mensah DATE OF ADMISSION: 05/10/2017 DATE OF DISCHARGE: 05/20/2017 DISCHARGE DIAGNOSES: 1. Sacral decubitus ulcer, present on admission 2. Chronic normocytic anemia with iron deficiency 3. Chronic osteoarthritis with recent hip fracture status post recent hip repair 4. Chronic hypoxic respiratory failure 5. Chronic hypertension 6. Constipation CONSULTATIONS: General surgery by Dr. Sherice Mensah, infectious Disease PROCEDURES / IMAGING: None CHIEF COMPLAINT: Acute fever SUBJECTIVE: Patient is feeling well at time of discharge, pain is well controlled PHYSICAL EXAM ON DISCHARGE: Systolic blood pressure is 150-160, heart rate 60, O2 sat 90% on 2 L nasal cannula, alert awake oriented x3, no apparent distress, bowel sounds are present , abdomen is soft nontender, decubitus ulcer demonstrates no erythema around the edges, good granulation tissue, located immediately superior to the sacrum LABS ON DISCHARGE: Hemoglobin 10.4, white blood cell count 6800, creatinine 0.6, potassium 4.1 HOSPITAL COURSE BY PROBLEM: The patient presented with acute fever and mild leukocytosis from fdc facility in the setting of decubitus ulcer and recent "blood stream" infection. The patient had been on Augmentin and metronidazole on presentation , and was adjusted to IV Unasyn. She was evaluated by Dr. Sherice Mensah and Infectious Disease, and the overall impression was that the patient did not appear to have significant worsening of her chronic wound. She was treated with a total of 7 days of IV Unasyn and antibiotics were discontinued on 05/18. Blood cultures from 05/10 were no growth. Pain was well managed with ibuprofen, and her last bowel movement was a day and half prior to discharge. She will be discharged on scheduled Senokot S as well as as needed MiraLax. The patient has indwelling Krause catheter to avoid contamination and excoriation of the wound area, and the Krause catheter was last exchanged approximately 1.5 weeks ago. Her Krause catheter should be removed once the wound area is affectively healed. Is unclear whether the wound will require flap verses bedside closure, and if there is further question, recommend outpatient consultation with Dr. Sherice Mensah. The patient required extended hospitalization given that the lower level of care, appropriately long-term acute care, did not have an available bed until the date of this discharge 05/20 , and to discharge her to any other level would have placed the patient had undue safety risk. DISCHARGE MEDICATIONS: Please see official discharge medication reconciliation sheet in chart , continue home medications with the discontinuation of Augmentin and metronidazole, initiation of bowel regiment. DISCHARGE INSTRUCTIONS: Please schedule follow-up with Dr. Sherice Mensah after discharge from long-term acute [facility]. TIME SPENT: Greater than 30 minutes were spent on direct patient care, as well as discharge planning and preparation.
[2017-05-20 15:29] VITALS: BP 135/78; PULSE 67; TEMP 98.7; O2SAT 91
--- NOTE | 2017-05-21 09:18 | ASDISCHSUM ---
Discharge Information Plan Status:LTAC Medically Cleared to Leave:05/19/2017 Discharge Date:05/20/2017 03:58 PM CM D/C Disposition: ADT D/C Disposition:Rehab [employer] Care Projected Discharge Date:05/20/2017 11:00 AM Transportation at D/C: Discharge Delay Reason: Follow-Up Date:05/20/2017 11:00 AM Discharge Slot: Final Diagnosis: Placement Information Referral Type:[facility] Referral ID:[id number] Provider Name:[facility] Address 1:[address] Address 2: City:[place] Selection Factors: State:[place] Patient Contact Information Contact Name:CHARLIEAlfredo Relationship: Address:[address] City:[place] Alternate Phone: State/Zip Code:[place] [address] Email: Financial Information Financial Class: Primary Plan Desc:MEDICARE INPATIENT Primary Plan Number:[id number] Secondary Plan Desc:DUNDAS WILBUR PONY Secondary Plan Number:[id number] Assessment Information [facility] Initial CM Assessment Living Arrangements What is your living Answers: With Spouse arrangement? Who do you live with? Type Of Residence What kind of residence do Answers: House you live in? Discharge Plan Comments Coordination Status Comments Notes: Pt is a 76 y/o female admitted for decubitus ulcer requiring muscle flap. CM spoke w/ Dr. Mensah regarding d/c POC. The recommendation is for her to go to LTAC at [facility]. CM made referral there. NAHOMI spoke w/ Shane at [facility] and was informed that he will have to review the clinical on Saturday w/ his team. Shane reports that under new Medicare guidelines that pt needs to be in the ICU for 3 days in order to qualify for LTAC. CM to follow. Plan: LTAC at [facility] Date Signed: 05/11/2017 02:24 PM Electronically Signed By:Danette Denisse, BIOLOGICS SPECIALIST [facility] NAHOMI Progress Note CM Note CM Note Notes: CM spoke w/ Dr. Danile and ESTELLE Oro regarding d/c POC. CM sent updates to [facility]. CM spoke w/ Shane and he will be out tomorrow evaluate pt. CM to follow. Plan: [facility] LTAC Date Signed: 05/13/2017 02:38 PM Electronically Signed By:VERNON Foley [facility] NAHOMI Progress Note CM Note CM Note Notes: Shane from [facility] came to assess pt. [facility] has accepted pt but will not have a bed for a couple more days. CM met w/ pt for dispo planning. CM explained to pt the bed availablity at [facility]. CM provided pt a list of other LTAC. Pt reports that she will speak w/ her about this. CM will check in tomorrow. NAHOMI updated Dr. Garcia regarding d/c POC. Plan: LTAC Date Signed: 05/14/2017 02:56 PM Electronically Signed By:VERNON Foley [facility] Progress Note CM Note CM Note Notes: NAHOMI spoke w/ Dr. Mensah's PA Santa and was infromed that Dr. Mensah would like pt to go to [facility] for LTAC. CM updated pt about this. CM communicated this w/ Dr. Garcia. CM spoke w/ Shane at [facility] was informed that they will most likely have a bed available by the end of this week. CM to follow. Plan: LTAC; [facility] Date Signed: 05/15/2017 12:02 PM Electronically Signed By:VERNON Foley [facility] NAHOMI Progress Note CM Note CM Note Notes: Spoke w/Shane at [facility] today, still no bed available for pt, maybe tomorrow. Pt and notified, also discussed transportation to facility, pt's called medicare and they told him that if she was going to a facility for a higher level of care, then transportation should be covered. CM explained in detail that [facility] could not guarantee transport would be covered, verbalized understanding. [facility] crack off person this weekend- Laurita [phone] DC Plan: LTAC, to set up stretcher transport Date Signed: 05/17/2017 02:16 PM Electronically Signed By:Yu Fong RN [facility] Progress Note CM Note CM Note Notes: Spoke with Laurita at [facility] - she reports that they do not have a bed available today but are anticipating some discharges tomorrow and will follow up with us in the AM. Dr Moore wanted me to confirm that they were planning on doing patient's flap when she is there - Laurita explained that they are planning to do an "advanced tissue closure," which is performed at the bedside without the use of general anesthesia. When patient is discharged, Case Management will need to document on the PCS form (for transport) that it is imperative for patient to transfer by ambulance due to the location/severity of her wounds. CM will follow. Date Signed: 05/19/2017 12:20 PM Electronically Signed By:Sarah Townsend RN Intervention Information Intervention Type:*IM-Signed Date of Service:05/13/2017 09:33 AM Patient Type:Inpatient Staff Member:Camryn Desai Hours: Discipline: Severity: Comment: Intervention Type:*IM-Signed Date of Service:05/20/2017 02:29 PM Patient Type:Inpatient Staff Member:Camryn Desai Hours: Discipline: Severity: Comment:
== END 2017-05-20 15:58 | DRG 592 ==
LOC: F3E 16:01
PROVIDERS: ADMIT Internal Medicine; ATTEND Internal Medicine
DX: L89.154 Pressure ulcer of sacral region, stage 4 (principal); R62.7 Adult failure to thrive; D50.9 Iron deficiency anemia, unspecified; I27.20 Pulmonary hypertension, unspecified; J96.11 Chronic respiratory failure with hypoxia; K59.00 Constipation, unspecified; Z96.653 Presence of artificial knee joint, bilateral; Z87.81 Personal history of (healed) traumatic fracture; Z96.0 Presence of urogenital implants
CPT/HCPCS: 84134-90; 97110-GP; 97116-GP; 97161-GP; 97165-GO; 97530-GO; 97530-GP; 97535-GO; G8978-GP-CJ; G8979-GP-CI; G8987-GO-CK; G8988-GO-CJ; J0295; J1650

== ENCOUNTER → 2017-09-11 | Outpatient (CLI) | payer OTHER | LOC: BHFA 10:45 | PROVIDERS: ATTEND Internal Medicine Cardiovascular Disease | DX: I27.21 Secondary pulmonary arterial hypertension (principal); I25.10 Atherosclerotic heart disease of native coronary artery without angina pectoris ==

== ENCOUNTER 2017-10-03 15:14 | Emergency (ER) | payer OTHER ==
[2017-10-03] MEDS ORDERED: GLUCAGON HCL 1 MG VIAL IVP ONE (16:31)
[2017-10-03] MEDS ORDERED: DIAZEPAM 5 MG/ML 1 ML SYR IVP ONE (16:32)
[2017-10-03] MEDS ORDERED: NS 1,000 ML IV ONE (16:33)
--- NOTE | 2017-10-03 16:35 | EDPHY ---
H & P Stated Complaint: FEELS GOT STEAK CAUGHT IN THROAT Time Seen by Provider: 10/03/17 16:23 HPI/ROS: CHIEF COMPLAINT: Esophageal foreign body HISTORY OF PRESENT ILLNESS: The patient is a 76-year-old female who was trying to swallow a piece of steak about 24 hr ago when she got it stuck in her esophagus. She states that she has tried multiple times since then to drink water and it she throws it back up. She reports a history of hiatal hernia. She also reports recently that she was hospitalized for 6 months after hip fracture complicated by sepsis and wound infection. She does not remember having heartburn or peptic ulcer disease at the time. She has had no difficulty breathing. No fever. REVIEW OF SYSTEMS: Constitutional: denies: chills, fever, recent illness, recent injury EENTM: denies: blurred vision, double vision, nose congestion Respiratory: denies: cough, shortness of breath Cardiac: denies: chest pain, irregular heart rate, lightheadedness, palpitations Gastrointestinal/Abdominal: See HPI denies: abdominal pain, diarrhea, nausea, vomiting, blood streaked stools Genitourinary: denies: dysuria, frequency, hematuria, pain Musculoskeletal: denies: joint pain, muscle pain Skin: denies: lesions, rash, jaundice, bruising Neurological: denies: headache, numbness, paresthesia, tingling, dizziness, weakness Hematologic/Lymphatic: denies: blood clots, easy bleeding, easy bruising Immunologic/allergic: denies: HIV/AIDS, transplant EXAM: GENERAL: Uncomfortable but in no acute distress. HEAD: Atraumatic, normocephalic. EYES: Pupils equal round and reactive to light, extraocular movements intact, sclera anicteric, conjunctiva are normal. ENT: TMs normal, nares patent, oropharynx clear without exudates. Moist mucous membranes. Handling secretions NECK: Normal range of motion, supple without lymphadenopathy or JVD. LUNGS: Breath sounds clear to auscultation bilaterally and equal. No wheezes rales or rhonchi. HEART: Regular rate and rhythm without murmurs, rubs or gallops. ABDOMEN: Soft, nontender, normoactive bowel sounds. No guarding, no rebound. No masses appreciated. BACK: No CVA tenderness, no spinal tenderness, step-offs or deformities EXTREMITIES: Normal range of motion, no pitting or edema. No clubbing or cyanosis. NEUROLOGICAL: Cranial nerves II through XII grossly intact. Normal speech, normal gait. 5/5 strength, normal movement in all extremities, normal sensation PSYCH: Normal mood, normal affect. SKIN: Warm, dry, normal turgor, no visible rashes or lesions. Source: Patient Exam Limitations: No limitations - Personal History Current Tetanus/Diphtheria Vaccine: Yes - Medical/Surgical History Hx Asthma: No Hx Chronic Respiratory Disease: Yes Hx Diabetes: No Hx Cardiac Disease: No Hx Renal Disease: No Hx Cirrhosis: No Hx Alcoholism: No Hx HIV/AIDS: No Hx Splenectomy or Spleen Trauma: No Other PMH: Bilateral knee replacements, arm fractures, cholecystectomy, pulmonary htn, femur fracture nehemiah placement, Surgery for wound infection - 04/26. - Family History Significant Family History: No pertinent family hx - Social History Smoking Status: Never smoked Alcohol Use: Sober Drug Use: None Constitutional: Initial Vital Signs Temperature (C) 37 C 10/03/17 15:23 Heart Rate 88 10/03/17 15:23 Respiratory Rate 18 10/03/17 15:23 Blood Pressure 102/81 H 10/03/17 15:23 O2 Sat (%) 90 L 10/03/17 15:23 O2 Delivery Mode Room Air Allergies/Adverse Reactions: shellfish derived Allergy (Intermediate, Verified 10/03/17 15:22) FACIAL SWELLING SEASONAL Allergy (Mild, Uncoded 12/07/13 14:19) RUNNY NOSE Home Medications: Medication Instructions Recorded Diltiazem Cd [Cardizem ER 120 MG 120 mg PO DAILY 03/23/12 (*)] Lisinopril [Zestril 20 mg (*)] 40 mg PO DAILY 03/23/12 Cholecalciferol Vit D3 [Vitamin D3 2,000 units PO DAILY 03/13/13 2000 units] DULoxetine [Cymbalta 60 MG (*)] 90 mg PO DAILY 03/06/17 Cyanocobalamin [Vitamin B12 1,000 mcg IM Q30D 05/10/17 1000MCG/ML (*)] Furosemide [Lasix 20 MG (*)] 20 mg PO DAILY 05/10/17 Ibuprofen 400 mg PO Q4H PRN 05/10/17 Lactobacillus Acidophilus 1 each PO DAILY 05/10/17 [Acidophilus Lactobacilli] Multivitamins [Multivitamin (*)] 1 each PO DAILY 05/10/17 Calcium Carbonate [Tums 500MG (*)] 500 mg PO TID PRN tab.chew 05/20/17 Iron/Vit C/Docusate [Khanh-Sequels 1 each PO DAILY tab.er 05/20/17 65 mg (*)] Polyethylene Glycol 3350 [Miralax 17 gm PO DAILY PRN pkt 05/20/17 17 gm (*)] Sennosides/Docusate Sodium 1 tab PO BID tab 05/20/17 [Senokot-S] Sodium Hypochlorite [Dakins / 5 ml IRR PRN PRN btl 05/20/17 Strength] Medical Decision Making - Diagnostics EKG Interpretation: An EKG obtained and was read and documented in trace view. Please see trace view for full reading and report. Sinus rhythm, right bundle branch block, unchanged from previous ED Course/Re-evaluation: 4:45 p.m. I discussed the case with Dr. Jazmyne henson. She agrees with glucagon and diazepam initially and if this does not work to call back for possible scoping. 5:45 p.m. the patient has had her glucagon and diazepam. We will try p.o. Challenge with carbonation. 6:15 P.M. the patient is tolerating p.o.. She states that she feels 100% better. She is very relieved and eager to go home. I recommended she start taking Prilosec which they have at home. She will follow up with GI for scope. Differential Diagnosis: Partial list of the Differential diagnosis considered include but were not limited to; esophageal foreign body, hiatal hernia, peptic ulcer disease, GERD and although unlikely based on the history and physical exam, I also considered acute coronary disease, dissection. I discussed these differential diagnoses and the plan with the patient as well as the usual and expected course. The patient understands that the diagnosis is provisional and that in medicine we are not always correct and that further workup is often warranted. Usual and customary warnings were given. All of the patient's questions were answered. The patient was instructed to return to the emergency department should the symptoms at all worsen or return, otherwise to followup with the physician as we discussed. - Data Points Laboratory Results: Laboratory Results 10/03/17 16:50 10/03/17 16:50 10/03/17 10/03/17 16:50 16:50 WBC 8.93 10^3/uL 10^3/uL (3.80-9.50) RBC 4.99 10^6/uL 10^6/uL (4.18-5.33) Hgb 14.6 g/dL g/dL (12.6-16.3) Hct 45.4 % % (38.0-47.0) MCV 91.0 fL fL (81.5-99.8) MCH 29.3 pg pg (27.9-34.1) MCHC 32.2 g/dL L g/dL (32.4-36.7) RDW 14.9 % % (11.5-15.2) Plt Count 222 10^3/uL 10^3/uL (150-400) MPV 9.7 fL fL (8.7-11.7) Neut % (Auto) 74.3 % H % (39.3-74.2) Lymph % (Auto) 15.6 % % (15.0-45.0) Jennings % (Auto) 8.2 % % (4.5-13.0) Eos % (Auto) 1.1 % % (0.6-7.6) Baso % (Auto) 0.4 % % (0.3-1.7) Nucleat RBC Rel Count 0.0 % % (0.0-0.2) Absolute Neuts (auto) 6.63 10^3/uL H 10^3/uL (1.70-6.50) Absolute Lymphs (auto) 1.39 10^3/uL 10^3/uL (1.00-3.00) Absolute Monos (auto) 0.73 10^3/uL 10^3/uL (0.30-0.80) Absolute Eos (auto) 0.10 10^3/uL 10^3/uL (0.03-0.40) Absolute Basos (auto) 0.04 10^3/uL 10^3/uL (0.02-0.10) Absolute Nucleated RBC 0.00 10^3/uL 10^3/uL (0-0.01) Immature Gran % 0.4 % % (0.0-1.1) Immature Gran # 0.04 10^3/uL 10^3/uL (0.00-0.10) Sodium 142 mEq/L mEq/L (135-145) Potassium 4.4 mEq/L mEq/L (3.5-5.2) Chloride 102 mEq/L mEq/L (97-110) Carbon Dioxide 29 mEq/l mEq/l (22-31) Anion Gap 11 mEq/L mEq/L (8-16) BUN 20 mg/dL mg/dL (7-23) Creatinine 0.5 mg/dL L mg/dL (0.6-1.0) Estimated GFR > 60 Glucose 83 mg/dL mg/dL (70-100) Calcium 9.7 mg/dL mg/dL (8.5-10.4) Total Bilirubin 1.0 mg/dL mg/dL (0.1-1.4) Conjugated Bilirubin 0.4 mg/dL mg/dL (0.0-0.5) Unconjugated Bilirubin 0.6 mg/dL mg/dL (0.0-1.1) AST 24 IU/L IU/L (14-46) ALT 24 IU/L IU/L (9-52) Alkaline Phosphatase 92 IU/L IU/L (38-126) Total Protein 7.7 g/dL g/dL (6.3-8.2) Albumin 4.2 g/dL g/dL (3.5-5.0) Lipase 40 IU/L IU/L (23-300) Medications Given: Discontinued Medications Diazepam (Valium) 2.5 mg IVP EDNOW ONE Stop: 10/03/17 16:33 Last Admin: 10/03/17 16:51 Dose: 2.5 mg Glucagon (Glucagon) 1 mg IVP EDNOW ONE Stop: 10/03/17 16:32 Last Admin: 10/03/17 16:52 Dose: 1 mg Sodium Chloride (Ns) 1,000 mls @ 0 mls/hr IV EDNOW ONE; Wide Open PRN Reason: Protocol Stop: 10/03/17 16:34 Last Admin: 10/03/17 16:51 Dose: 1,000 mls Departure - Departure Disposition: Home, Routine, Self-Care Clinical Impression: Esophageal foreign body Qualifiers: Encounter type: initial encounter Qualified Code(s): T18.108A - Unspecified foreign body in esophagus causing other injury, initial encounter Condition: Fair Instructions: Esophageal Foreign Body (ED) Additional Instructions: Began taking Prevacid daily as we discussed until you follow up with gastrology. Referrals: Tae Polk MD [Primary Care Provider] - As per Instructions Ian Brown MD [Medical Doctor] - As per Instructions
[2017-10-03 17:04] LABS: PLATELET COUNT 222 10^3/uL (150-400)
--- NOTE | 2017-10-03 17:20 | CPEKG ---
Heart Rate: 81 RR Interval: 741 P-R Interval: 160 QRSD Interval: 144 QT Interval: 408 QTC Interval: 474 P Ord: 46 QRS Ord: -58 T Wave Ord: 58 EKG Severity - ABNORMAL ECG - EKG Impression: SINUS RHYTHM EKG Impression: RBBB AND LAFB EKG Impression: PROBABLE LEFT VENTRICULAR HYPERTROPHY EKG Impression: LATERAL INFARCT, OLD Electronically Signed By: Marty Whitaker 03-Oct-2017 17:41:56
[2017-10-03 18:29] VITALS: BP 153/84
== END 2017-10-03 18:28 | disposition home or self-care (01) ==
DX: T18.108A Unspecified foreign body in esophagus causing other injury, initial encounter (principal); E86.9 Volume depletion, unspecified; X58.XXXA Exposure to other specified factors, initial encounter; Y99.8 Other external cause status; Y93.89 Activity, other specified
CPT/HCPCS: 93005; 96374; 96375; 99284; J1610; J3360

== ENCOUNTER 2017-11-13 10:30 | Emergency (ER) | payer OTHER ==
--- NOTE | 2017-11-13 10:41 | EDPHY ---
H & P Stated Complaint: Chest pain after fall 4 days ago Time Seen by Provider: 11/13/17 10:39 HPI/ROS: CHIEF COMPLAINT: Left upper chest pain following injury 4 days ago, seen at urgent care, abnormal EKG HISTORY OF PRESENT ILLNESS: The patient presents to the ED with complaints of left upper chest pain following an injury 4 days ago. She reportedly was tripping when her caught her and pulled her by her left arm. Since that time she has had some reproducible pain in her left anterior chest wall. She was seen at urgent care and was noted to have a bifascicular block on her EKG. As a result she was referred to the ED for further workup. The patient denies any antecedent history of exertional chest pain, difficulty breathing, asymmetric calf pain or swelling or other complaints. The patient does report moderate tenderness to palpation in her left anterior chest wall. REVIEW OF SYSTEMS: A comprehensive 10 point review of systems is otherwise negative aside from elements mentioned in the history of present illness. Source: Patient - Medical/Surgical History Hx Asthma: No Hx Chronic Respiratory Disease: Yes Hx Diabetes: No Hx Cardiac Disease: No Hx Renal Disease: No Hx Cirrhosis: No Hx Alcoholism: No Hx HIV/AIDS: No Hx Splenectomy or Spleen Trauma: No Other PMH: Bilateral knee replacements, arm fractures, cholecystectomy, pulmonary htn, femur fracture nehemiah placement, Surgery for wound infection - 04/26. - Social History Smoking Status: Never smoked - Physical Exam Exam: General Appearance: Alert, no distress Head: Atraumatic Eyes: Pupils equal, round, reactive ENT, Mouth: No hemotympanum, no oral trauma Neck: Nontender, trachea midline Respiratory: Tenderness to palpation left anterior chest wall, no subcutaneous emphysema, lungs clear to auscultation bilaterally Cardiovascular: Regular rate and rhythm Abdomen: Abdomen is soft and nontender, pelvis stable Skin: No lacerations, No abrasion Back: No midline T/L/S pain Extremities: Nontender, full range of motion Constitutional: Initial Vital Signs Temperature (C) 36.6 C 11/13/17 10:35 Heart Rate 61 11/13/17 10:35 Respiratory Rate 18 11/13/17 10:35 Blood Pressure 143/88 H 11/13/17 10:35 O2 Sat (%) 92 11/13/17 10:35 O2 Delivery Mode Nasal Cannula O2 (L/minute) 2 Allergies/Adverse Reactions: shellfish derived Allergy (Intermediate, Verified 11/13/17 10:44) FACIAL SWELLING SEASONAL Allergy (Mild, Uncoded 11/13/17 10:44) RUNNY NOSE Home Medications: Medication Instructions Recorded Diltiazem Cd [Cardizem ER 120 MG 120 mg PO DAILY 03/23/12 (*)] Lisinopril [Zestril 20 mg (*)] 40 mg PO DAILY 03/23/12 Cholecalciferol Vit D3 [Vitamin D3 2,000 units PO DAILY 03/13/13 2000 units] DULoxetine [Cymbalta 60 MG (*)] 90 mg PO DAILY 03/06/17 Cyanocobalamin [Vitamin B12 1,000 mcg IM Q30D 05/10/17 1000MCG/ML (*)] Furosemide [Lasix 20 MG (*)] 20 mg PO DAILY 05/10/17 Ibuprofen 400 mg PO Q4H PRN 05/10/17 Lactobacillus Acidophilus 1 each PO DAILY 05/10/17 [Acidophilus Lactobacilli] Multivitamins [Multivitamin (*)] 1 each PO DAILY 05/10/17 Calcium Carbonate [Tums 500MG (*)] 500 mg PO TID PRN tab.chew 05/20/17 Iron/Vit C/Docusate [Khanh-Sequels 1 each PO DAILY tab.er 05/20/17 65 mg (*)] Polyethylene Glycol 3350 [Miralax 17 gm PO DAILY PRN pkt 05/20/17 17 gm (*)] Sennosides/Docusate Sodium 1 tab PO BID tab 05/20/17 [Senokot-S] Sodium Hypochlorite [Dakins 1/4 5 ml IRR PRN PRN btl 05/20/17 Strength] Medical Decision Making - Diagnostics EKG Interpretation: EKG: Complete interpretation has been separately recorded in the [facility] archive. Summary impression: Bifascicular block, unchanged from prior EKG Imaging Results: Imaging Impressions Chest X-Ray 11/13/17 10:50 Impression: 1. New since 2012 moderate compression abnormalities of T4 and T5. Correlation with symptoms is recommended. 2. Chronic cardiomegaly without obvious acute decompensation. 3. Chronic large hiatal hernia. ED Course/Re-evaluation: The patient presents to the ED for evaluation of chest wall pain following an injury 4 days ago. The patient has a chronic bifascicular block noted on her EKG which is not changed from her prior EKGs. Additionally, the patient has no complaints of palpitations, dyspnea, exertional chest pain or other worrisome findings. The patient's chest x-ray demonstrates no evidence of an obvious rib fracture pneumothorax. She has old compression fractures noted in her thoracic spine. She has no acute thoracic pain currently. The patient will be discharged home with instructions to use Tylenol and ibuprofen as needed for pain. Differential Diagnosis: Differential diagnosis considered includes rib fracture, pneumothorax, shoulder separation, pericarditis, myocardial infarction, shoulder strain Departure - Departure Disposition: Home, Routine, Self-Care Clinical Impression: Chest wall pain Condition: Good Instructions: Musculoskeletal Pain (ED) Additional Instructions: 1. Take Ibuprofen or Motrin 600 mg by mouth three times a day. 2. Tylenol as needed for pain 3. Return to the ED for markedly worsening symptoms or other concerns.
--- NOTE | 2017-11-13 10:44 | CPEKG ---
Heart Rate: 59 RR Interval: 1017 P-R Interval: 168 QRSD Interval: 136 QT Interval: 440 QTC Interval: 436 P [place]: 72 QRS [place]: -52 T Wave [place]: 51 EKG Severity - ABNORMAL ECG - EKG Impression: SINUS RHYTHM EKG Impression: RBBB AND LAFB Electronically Signed By: Elan Olguin 13-Nov-2017 10:51:08
[2017-11-13 12:12] VITALS: BP 117/78
== END 2017-11-13 12:15 | disposition home or self-care (01) ==
LOC: EDBD → EDUNIT#
DX: S29.9XXA Unspecified injury of thorax, initial encounter (principal); W01.0XXA Fall on same level from slipping, tripping and stumbling without subsequent striking against object, initial encounter

== ENCOUNTER → 2017-12-04 | Outpatient (CLI) | payer OTHER ==
[~2017-12-04] MED LIST: IOPAMIDOL (ISOVUE 370) 100 ML BTL IV ONE
== END ==
LOC: FIMAGING 08:41
PROVIDERS: ATTEND Internal Medicine Critical Care Medicine
DX: I27.20 Pulmonary hypertension, unspecified (principal); G47.33 Obstructive sleep apnea (adult) (pediatric); R09.02 Hypoxemia; K44.9 Diaphragmatic hernia without obstruction or gangrene; M48.54XA Collapsed vertebra, not elsewhere classified, thoracic region, initial encounter for fracture; M40.204 Unspecified kyphosis, thoracic region
CPT/HCPCS: 71275; Q9967; 82565-PO

== ENCOUNTER → 2018-12-08 | Outpatient (CLI) | payer OTHER | LOC: EMCIMAGING 10:15 ==